=== PATIENT | female | born 1960 | race Caucasian/White ===

== ENCOUNTER 2022-01-24 12:47 | Outpatient (CLI) | payer BC, SELFPAY ==
--- NOTE | 2022-01-24 13:00 | CRLHL7_ITS ---
For Patients: As a result of the Century Cures Act, medical imaging exams and procedure reports are released immediately into your electronic medical record. You may view this report before your referring provider. If you have questions, please contact your health care provider. BILATERAL MAMMOGRAM WITH COMPUTER-AIDED DETECTION TECHNIQUE: CC and MLO views were obtained. These mammographic images have been obtained using full-field digital technique. These mammographic images were interpreted with the benefit of computer-aided detection. COMPARISON FILM: 08/19/2016, 08/03/2015, 07/29/2014. FINDINGS: There are scattered areas of fibroglandular density IMPRESSION: There is no radiographic evidence for malignancy. ASSESSMENT: BI-RADS Category 2: Benign RECOMMENDATION: Routine screening mammogram in 1 year. A lay language report of this examination will be provided to the patient. Artemio Hough M.D. Diagnostic Radiologist [email or web address] EMMA/jorge patel/Dictated by: Artemio Hough MD @ 01/25/2022 12:19:00 PM (Electronically Signed)
== END 2022-01-24 12:48 | disposition home or self-care (01) ==
LOC: MAMMO 12:48
PROVIDERS: PCP Internal Medicine; Visit Provider Internal Medicine
DX: Z12.31 Encounter for screening mammogram for malignant neoplasm of breast (principal); R92.8 Other abnormal and inconclusive findings on diagnostic imaging of breast
CPT/HCPCS: 77063; 77067

== ENCOUNTER 2023-02-17 07:32 | Outpatient (CLI) | payer BC, SELFPAY ==
--- NOTE | 2023-02-17 07:45 | CRLHL7_ITS ---
For Patients: As a result of the Century Cures Act, medical imaging exams and procedure reports are released immediately into your electronic medical record. You may view this report before your referring provider. If you have questions, please contact your health care provider. BILATERAL SCREENING MAMMOGRAM WITH COMPUTER-AIDED DETECTION TECHNIQUE: CC and MLO views were obtained. These mammographic images have been obtained using full-field digital technique. These mammographic images were interpreted with the benefit of computer-aided detection. COMPARISON FILM: 01/24/22, 08/19/16, 08/03/15. FINDINGS: The breasts are almost entirely fatty IMPRESSION: There is no radiographic evidence for malignancy. ASSESSMENT: BI-RADS Category 2: Benign RECOMMENDATION: Routine screening mammogram in 1 year. A lay language report of this examination will be provided to the patient. Artemio Hough M.D. Diagnostic Radiologist [email or web address] JOSSELYN/Dictated by: Artemio Hough MD @ 02/17/2023 3:03:00 PM (Electronically Signed)
== END 2023-02-17 07:33 | disposition home or self-care (01) ==
LOC: MAMMO 07:33
PROVIDERS: PCP Internal Medicine; Visit Provider Internal Medicine
DX: Z12.31 Encounter for screening mammogram for malignant neoplasm of breast (principal)
CPT/HCPCS: 77067

== ENCOUNTER 2023-08-31 09:11 | Outpatient (CLI) | payer BC, SELFPAY | END 2023-08-31 09:12 | disposition home or self-care (01) | LOC: NFLDREF 09-12 19:43 | PROVIDERS: PCP Internal Medicine; Referring Provider Internal Medicine; Visit Provider Internal Medicine | DX: Z13.220 Encounter for screening for lipoid disorders (principal); Z13.1 Encounter for screening for diabetes mellitus | CPT/HCPCS: 80061; 82947 ==

== ENCOUNTER 2024-04-19 13:23 | Outpatient (CLI) | payer BC, SELFPAY ==
--- OUTSIDE RECORDS SUMMARY | 2024-04-19 13:25 | XMS_ITS | Encounter Summary ---
Author Organization [facility] Address [address] [place] [address]. [place], [place] [id number] [place] [address] Care Team Providers Care Gas Line Repairer Name Role Phone Becky Vasquez DO Primary Care Provider [phone]- [phone] Encounter Details Date Type Department Care Team (Late st Contact Info) Description 08/03/2021 [employer] Message [facility] Medical [place] [id number] [place] [address] Becky Vasquez DO [address] [place] [address] Rx refill Social History Tobacco Use Types Packs/Day Years Used Date Smoking Tobacco: Former Cigarettes 0 07/10/1979 - 07/10/2000 Smokeless Tobacco: Never Alcohol Use Standard Drinks/Week Comments Not Currently 0 (1 standard drink = 0.6 oz pur e alcohol) AUDIT-C Answer Date Recorded Q1: How often do you have a drink containing alc ohol? Monthly or less 08/25/2020 Q2: How many drinks containi ng alcohol do you have on a typical day when you are drinking? 1 or 2 08/25/2020 Q3: How often do you have si x or more drinks on one occasion? Never 08/25/2020 Overall Financial Resource Strain (CARDIA) Answe r Date Recorded How hard is it for you to pa y for the very basics like food, housing, medical care, and heating? Somewhat hard 08/25/2020 [facility] - Occupational Stress Questionnaire Answer Date Recorded Do you feel stress - tense, restless, nervous, or anxious, or unable to sleep at night because your mind is troubled all the time - these days? Only a little 08/25/2020 Exercise Vital Sign Answer Date Recorde d On average, how many days pe r week do you engage in moderate to strenuous exercise (like a brisk walk)? 0 days 08/25/2020 On average, how many minutes do you engage in exercise at this level? 0 min 08/25/2020 Hunger Vital Sign Answer Date Recorded Within the past 12 months, y ou worried that your food would run out before you got the money to buy more. Never true 08/25/19 21 Within the past 12 months, t he food you bought just didn't last and you didn't have money to get more. Never true 08/25/2020 PRAPARE - Transportation Answer Date Re corded In the past 12 months, has l ack of transportation kept you from medical appointments or from getting medications? No 08/10 In the past 12 months, has l ack of transportation kept you from meetings, work, or from getting things needed for daily living? No 08/25/2020 Education Answer Date Recorded What is the highest level of school you have completed or the highest degree you have received? Associate degree: occupational, technical, or vocational program 08/25/2020 Sex and Gender Information Value Date Recorded Sex Assigned at Not on file Gender Identity Not on file Sexual Orientation Not on file Job Start Date Occupation Industry Not on file Not on file Not on file COVID-19 Exposure Response Date Recorded In the last month, have you been in contact with someone who was confirmed or suspected to have Coronavirus / COVID-19? Yes 07/28/2021 1:44 PM HEALTH CARE FACILITY ADMINISTRATOR documented as of this encounter Functional Status Functional Status Response Date of Assessment Stat us RETIRED Are you deaf or do y ou have serious difficulty hearing No 06/23/2021 Active RETIRED Are you blind or do you have serious difficulty seeing, even when wearing glasses? No 06/23/2021 Active Do you have serious difficul ty walking or climbing stairs? No 06/23/2021 Active Do you have difficulty dressing or bathing? No 06/23/2021 Active Because of a physical, menta l, or emotional condition, do you have difficulty doing errands alone such as visiting a doctor's office or shopping? No 06/23/2021 Active Cognitive Status Response Date of Assessment Statu s Because of a physical, menta l, or emotional condition, do you have serious difficulty concentrating, remembering, or making decisions? No 06/23/2021 Active documented as of this encounter Plan of Treatment Not on file documented as of this encounter Goals Goal Patient Goal Type Associated Problems Recent Progress Patient-Stated? Author Establish Reliable Transportation General No Alesia Rodrigues CSW documented as of this encounter Visit Diagnoses Not on filedocumented in this encounter Care Teams Gas Line Repairer Relationship Specialty Start Date End Date Becky Vasquez DO [address] [place] [address] PCP - General INTERNAL MEDICINE 08/26/20 documented as of this encounter
--- OUTSIDE RECORDS SUMMARY | 2024-04-19 13:25 | XMS_ITS | Clinical Summary ---
Author Organization [facility] Address [address] [place] [address]. [place], [place] [id number] [place] [id number] Care Team Providers Care Patient Financial Specialist Name Role Phone Becky Vasquez DO Primary Care Provider +1- [phone] Allergies No known active allergies Medications Medication Sig Dispensed Refills Start Date End Date Status ondansetron 4 MG disintegrating tablet Take 1 tablet (4 mg total) by mouth every 8 (eight) hours as needed for Nausea. 20 tablet 04/03/2021 Active cephALEXin 500 MG capsule 06/18/2021 Active HYDROcodone-acetaminoph en 5-325 MG tablet 06/18/2021 Active citalopram 40 MG tabletIndications:Depre ssion with anxiety Take 1 tablet (40 mg total) by mouth every evening. 30 tablet 4 08/03/2021 Active Active Problems Problem Noted Date Diagnosed Date Status post plastic surgery 06/23/2021 Neck pain, musculoskeletal 03/09/2021 Bilateral pendulous breasts 03/09/2021 Class 1 obesity due to exces s calories without serious comorbidity with body mass index (BMI) of 33.0 to 33.9 in adult 08/26/2020 Dupuytren's contracture 07/20/2018 Low back pain 01/21/2014 Depression with anxiety 07/22/2011 Overview: panic/anxiety panic/anxiety Panic disorder with agoraphobia 01/12/2011 Tension headache 10/03/2006 History of tobacco use Osteoporosis Overview: lumbar Comp Fx on film Resolved Problems Problem Noted Date Diagnosed Date Resolved Date Pruritic dermatitis 2021 03/09/20 21 Sacroiliac joint dysfunction of right side 01/19/2021 03/09/2021 Greater trochanteric bursitis of right hip 01/19/2021 03/09/2021 Nontraumatic tear of rotator cuff 09/27/2012 08/26/2020 Overview: Surgery 06/20 Surgery 06/20 Seborrheic infantile dermatitis 10/03/2006 08/26/2020 Overview: eczema eczema Immunizations Name Administration Dates Next Due Flucelvax 2 YRS+ (Multi-Dose Vial) 06/08/2021 Influenza (Generic) 05/24/2020, 9,03/18/2018,04/23/20 17,04/09/2016,03/31/2014,04/09/2013,05/21,04/05/2011 Influenza Adult (Generic) 04/20/2019,03/2018,04/23/2017,04/09/20 16,04/08/2015 Shingrix 03/10/2018,10/20/2017 Td (Tenivac) preservative free 06/14/2016,1995 Tdap (Adacel) 03/31/2016 Tdap (Generic) 03/31/2016,03/31/2014,05/28/2010 Family History Medical History Relation Comments Alcohol Abuse Brother 1 COPD Brother 1 tobacco use Brother 1 No Known Problems Brother 2 Hypertension Father Lung Cancer Maternal Grandfather Alzheimers Mother Lung Cancer Paternal Grandmother Relation Status Comments Brother 1 Alive Brother 2 Alive Daughter Alive Father Alive Maternal Grandfather Maternal Grandmother Mother Paternal Grandfather Paternal Grandmother Son 1 Alive Son 2 Alive Son 3 Alive Social History Tobacco Use Types Packs/Day Years [...] medical care, and heating? Somewhat hard 08/25/2020 [facility] - Occupational Stress [...] file Not on file Not on file Last Filed Vital Signs Vital Sign Reading Time Taken Comments Blood Pressure 98/66 06/24/2021 11:37 AM LIFT ELECTRICIAN Pulse 74 06/24/2021 11:37 AM LIFT ELECTRICIAN Temperature 36.7 ??C (98.1 ??F) 06/24/2021 11:[address] Respiratory Rate 16 06/24/2021 11:37 AM LIFT ELECTRICIAN Oxygen Saturation 96% 06/24/2021 11:37 AM LIFT ELECTRICIAN Inhaled Oxygen Concentration - - Weight 84.2 kg (185 lb 9.6 oz) 06/24/2021 3:03 A M LIFT ELECTRICIAN Height 158.8 cm (5' 2.5) 06/23/2021 10:33 AM CS T Body Mass Index 33.41 06/23/2021 10:33 AM LIFT ELECTRICIAN Plan of Treatment Health Maintenance Due Date Last Done Comments Hepatitis C 02/25[birth year]1980 Annual Physical 08/26/2021 08/26/2020 RSV Immunization or 60+ Years (1 - 1-dose 60+ series) 2022 Mammogram Screening 01/19/2023 01/19/2021, 09/27/2018, 08/19/2016 COVID-19 Vaccine ( season) 2024 Influenza Adult (#1) 2024 06/08/2021, 05/24/2020, 04/20/2019, Additional history exists Colorectal Cancer Screening Colonoscopy (10 Years) 09/29/2025 09/30/2015 DTaP, Tdap and Td Vaccines (6 - Td or Tdap) 06/14/2026 06/14/2016, 03/31/2016, 03/31/2016, Additional history exists Zoster Vaccines Completed 03/10/2018, 10/20/2017 Meningococcal Vaccine Aged Out No ajay floyd eligible based on patient's age to complete this topic Pneumococcal Vaccine: Pediatrics (0 to 5 Years) and At-Risk Patients (6 to 64 Years) Aged Out No longer eligible based on patient's age to complete this topic RSV Immunizations Under 20 Months Aged Out No longer eligible based on patient's age to complete this topic Goals Goal Patient Goal Type Associated Problems Recent Progress Patient-Stated? Author Establish Reliable Transportation General No Alesia Rodrigues CSW Procedures Procedure Name Priority Date/Time Associated Diagnosis Comments MG SCREENING W HARI MARCELA DIGI Routine 01/19/2021 1:50 PM CDT Screening due Encounter for screening mammogram for malignant neoplasm of breast COLONOSCOPY GENERIC (SCAN ORDER) Routine 09/30/2015 from Last 3 Months or Most Recently Relevant to Health Maintenance Results * MG SCREENING W HARI MARCELA DIGI (01/19/2021 1:50 PM CDT) Anatomical Region Laterality Modality Breast Bilateral Mammography 01/26/2021 4:02 PM CDT Narrative 01/26/2021 4:02 PM CDT HISTORY: ??Routine bilateral screening mammogram with tomosynthesis. TECHNICAL FACTORS: ??Routine bilateral screening mammogram with tomosynthesis. Four images: RCC, LCC, LMLO, RMLO. Exam performed at [facility] by Nithya Bailey RT(R)(CT)(M). COMPARISON: ??09/27/2018 and 09/25/2017. BREAST COMPOSITION: ??There are scattered fibroglandular densities. FINDINGS: ??No suspicious masses, calcifications, architectural distortion or other findings. No suspicious skin or nipple changes. No suspicious axillary lymph nodes. No suspicious interval change. CONCLUSION: 1. No mammographic evidence of malignancy. Routine screening mammography is advised. 2. BI-RADS 1: Negative. RECOMMENDATION: ??If there are no areas of clinical concern, routine screening mammography is advised. Thank you for the opportunity to provide your interpretation. Cheryl Leung MD A: ANUPAM 01/26/2021 3:02 PM Becky Vasquez DO MAMMO * COLONOSCOPY (09/30/2015) Becky Vasquez DO SCANNING Performing Organization Address City/State/[facility] [place] Phone Number [facility] from Last 3 Months or Most Recently Relevant to Health Maintenance Advance Directives * Full Code (Latest Code Status on File) Date Activated Date Inactivated Comments 06/23/2021 4:28 PM 06/24/2021 4:25 PM Care Teams Patient Financial Specialist Relationship Specialty Start Date End Date Becky Vasquez DO [address] [place] [address] PCP - General INTERNAL MEDICINE 08/26/20
--- OUTSIDE RECORDS SUMMARY | 2024-04-19 13:26 | XMS_ITS | Referral Summary ---
Author Organization [facility] Address [address] [place] [address] Care Team Providers Care Process Lead Name Role Phone Adriana Marroquin APRN, C.N.P., D.N.P. P [facility] Care Provider Source Comments Patient records contain information from all sites at [facility]. For routine questions regarding patient records, call [phone] during business hours, M-F 8:00 AM - 5:00 PM Central Time. Record requests for emergency care only can be directed to [phone] at any time.[facility] Encounters Date Type Department Care Team Description 04/09/2024 Orders Only [facility] SEMN PCP TH MNT Adriana Marroquin APRN, C.N.P., D.N.P. Screening Lipid 04/04/2024 Clinical Communication Department of Family Medicine, [facility], in [place], [place] [address] [place] [phone] Adriana Marroquin APRN, C.N.P., D.N.P. Quality (Mammogram) 03/29/2024 8:00 AM CDT Clinical Support Department of Nutrition in [place], [place] [address] [place] [address] Adriana Marroquin APRN, C.N.P., D.N.P. Darlene Moreno RDN, LD Body Mass Index 31.0 To 31.9 Adult 03/22/2024 3:00 PM CDT Office Visit Department of Family Medicine, [facility], in [place], [place] [address] [place] [address] Adriana Marroquin APRN, C.N.PZaheer, D.N.P. Body Mass Index 31.0 To 31.9 Adult; Concern Weight Adult Asymptomatic 02/09/2024 5:50 PM CDT - 02/09/2024 11:59 PM CDT Hospital Encounter Department of Laboratory Medicine in [place], [place] [address], [place] [address] Adriana Marroquin APRN, C.N.P., D.N.P. Body Mass Index 31.0 To 31.9 Adult Discharge Disposition: Home or Self Care 02/09/2024 3:34 PM CDT - 02/09/2024 5:49 PM CDT Hospital Encounter Department of Laboratory Medicine in [place], [place] [address] [place] [address] Adriana Marroquin APRN C.N.P., D.N.P. Body Mass Index 31.0 To 31.9 Adult Discharge Disposition: Home or Self Care 02/09/2024 3:34 PM CDT - 02/09/2024 5:49 PM CDT Hospital Encounter Department of Laboratory Medicine in [place], [place] [address] [place] [address] Adriana Marroquin APRN, C.N.P., D.N.P. Body Mass Index 31.0 To 31.9 Adult Discharge Disposition: Home or Self Care 02/09/2024 3:34 PM CDT - 02/09/2024 5:49 PM CDT Hospital Encounter Department of Laboratory Medicine in [place], [place] [address] [place] [address] Adriana Marroquin APRN C.N.P., D.N.P. Body Mass Index 31.0 To 31.9 Adult Discharge Disposition: Home or Self Care 02/09/2024 3:00 PM CDT Office Visit Department of [facility], [facility], [address] [address] [place] APRN C.N.PZaheer, D.N.P. Body Mass Index 31.0 To 31.9 Adult (Primary Dx); Concern Weight Adult Asymptomatic 02/08/2024 Refill Department of [facility], in [address] [address] Adriana Marroquin APRN, C.N.P., D.N.P. Med Refill 02/07/2024 Refill Department [facility], [address] [address] Adriana Marroquin APRN C.N.P., D.N.P. Med Refill from Last 3 Months Allergies No known active allergies Medications Medication Sig Dispensed Refills Start Date End Date Status citalopram (CeleXA) 40 mg tabletIndications: Anxiety Take 1 tablet by mouth once daily 90 tablet 08/04/2021 Active triamcinolone (KENALOG) 0.1 % cream Apply to affected area 1-2 times daily as needed. Avoid face and groin. 80 g 1 12/15/2023 Active hydrOXYzine (VistariL) 25 mg capsuleIndications :Dermatitis TAKE 1 CAPSULE(25 MG) BY MOUTH EVERY 6 HOURS NEEDED FOR ITCHING 30 capsule 1 02/09/2024 Active clobetasoL (Temovate) 0.05 % cream 01/24/2024 Active phentermine (Adipex-P) 37.5 mg tabletIndications: Body Mass Index 31.0 To 31.9 Adult,Concern Weight Adult Asymptomatic Take 1 tablet (37.5 mg total) by mouth daily before morning meal. 60 tablet 1 03/23/2024 Active phentermine (Adipex-P) 37.5 mg tabletIndications: Body Mass Index 31.0 To 31.9 Adult,Concern Weight Adult Asymptomatic Take 1 tablet (37.5 mg total) by mouth daily before morning meal. 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 Panic disorder without agoraphobia 12/29/2008 Anxiety From General Medical Condition 7 Overview (04/06/2018): Overview: panic/anxiety Seborrheic infantile dermatitis 10/03/2006 Overview (04/06/2018): Overview: eczema Tension headache 10/03/2006 Resolved Problems Problem Noted Date Diagnosed Date Resolved Date Mass Hand Soft Tissue 04/27/20182017 Immunizations Name Administration Dates Next Due HepB Adult (HEPLISAV-B) 01/24/2022,12/20/2021 Influenza Split Preservative Free ID 04/05/2011 Influenza, Injectable, Mdck, Preservative Free, Quadrivalent 03/25/2022 Influenza, Injectable, Mdck, Quadrivalent 06/08/2021 Influenza, Injectable, Quadrivalent 04/20/2019 Influenza, Seasonal, Injectable 04/09/2013,05/21 Influenza, Unspecified 05/24/2020,2017,04/23/2017,2015,04/08/2015,03/31/2014,04/09/2013,1 07/21/2011,04/05/2011 MMR 01/24/2022,12/20/2021 Measles 11/16/1976 RZV (SHINGRIX) 03/10/2018,10/20/2017 Td (Adult), adsorbed 09/13/1995 Td Preservative Free (TENIVA C, DECAVAC) 06/14/2016,09/13/1995 Tdap 03/31/2016,05/28/2010 influenza trivalent vaccine (6 months and older)(PF) 04/23/2017,04/09/2016 influenza vaccine quad (FLUZONE/FLUARIX) (6 months and older)(PF) 04/20/2019,03/18/2018,04/08/2015,2013 Social History Tobacco Use Types Packs/Day Years Used Date Smoking Tobacco: Former Cigarettes 1 21 0 07/10/1979 - 07/10/2000 Smokeless Tobacco: Never Tobacco Cessation:Counseling Given: Not Answered Alcohol Use Standard Drinks/Week Comments Yes 0 (1 standard drink = 0.6 oz pur e alcohol) 1 drink every 3 months [facility] [employer] Answer Date Recorded In the past 12 months has e [employer], gas, oil, or water [employer] threatened to shut off services in your home? No 02/09/2024 Humiliation, Afraid, Rape, and Kick questionnair e Answer Date Recorded Within the last year, have y ou been afraid of your partner or ex-partner? No 07/13/2020 Within the last year, have y ou been humiliated or emotionally abused in other ways by your partner or ex-partner? No Within the last year, have y ou been kicked, hit, slapped, or otherwise physically hurt by your partner or ex-partner? No 07/13/2020 Within the last year, have y ou been raped or forced to have any kind of sexual activity by your partner or ex-partner? No 07/13/2020 Social Connection and Isolation Panel [NHANES] A nswer Date Recorded In a typical week, how many times do you talk on the phone with family, friends, or neighbors? Once a week 07/13/2020 How often do you get together with friends or re latives? Once a week 07/13/2020 How often do you attend islam or mormonism serv ices? Never 07/13/2020 Do you belong to any clubs o r organizations such as islam groups, unions, fraternal or athletic groups, or school groups? No 07/13/2020 How often do you attend meet ings of the clubs or organizations you belong to? Never 07/13/2020 Are you , , di vorced, , never , or living with a partner? 07/13/2020 AUDIT-C Answer Date Recorded Q1: How often do you have a drink containing alc ohol? Never 07/13/2020 Average Number of Drinks Not on file 021 Frequency of Binge Drinking Not on file 10/2020 Overall Financial Resource Strain (CARDIA) Answe r Date Recorded How hard is it for you to pa y for the very basics like food, housing, medical care, and heating? Somewhat hard 07/13/2020 PHQ-2 Answer Date Recorded PHQ-2 Score 0 12/15/2023 [facility] - Occupational Stress Questionnaire Answer Date Recorded Do you feel stress - tense, restless, nervous, or anxious, or unable to sleep at night because your mind is troubled all the time - these days? Only a little 07/13/2020 Exercise Vital Sign Answer Date Recorde d On average, how many days pe r week do you engage in moderate to strenuous exercise (like a brisk walk)? 0 days 02/09/2024 On average, how many minutes do you engage in exercise at this level? 0 min 02/09/2024 Hunger Vital Sign Answer Date Recorded Within the past 12 months, y ou worried that your food would run out before you got the money to buy more. Never true 02/09/20 24 Within the past 12 months, t he food you bought just didn't last and you didn't have money to get more. Never true 02/09/2024 PRAPARE - Transportation Answer Date Re corded In the past 12 months, has l ack of transportation kept you from medical appointments or from getting medications? No 08/2023 In the past 12 months, has l ack of transportation kept you from meetings, work, or from getting things needed for daily living? No 02/09/2024 Depression Answer Date Recor ded PHQ-9 Total Score (max 27) 4 07/17 Nutrition Answer Date Recorded On average, how many serving s of fruits and vegetables do you eat per day (serving size is equal to 1 cup or approximately the size of a tennis ball)? 0-2 02/09/2024 Dental Answer Date Recorded Dental: Regular Dentist Yes 02/09/20 24 Employment Answer Date Recorded Employment status Employed and actively working without restrictions 02/09/2024 Housing Stability Answer Date Recorded What is your living situation today? I have a cara place to live 02/09/2024 Education Answer Date Recorded What is the highest level of school you have completed or the highest degree you have received? Associate degree: occupational, technical, or vocational program 07/13/2020 Sex and Gender Information Value Date Recorded Sex Assigned at Female 12/05/2023 6:39 PM CDT Gender Identity Female 04/09/2018 11:42 AM CDT Sexual Orientation Straight 04/09/2018 11 :42 AM CDT Last Filed Vital Signs Vital Sign Reading Time Taken Comments Blood Pressure 114/80 03/22/2024 2:43 PM CDT Pulse 100 03/22/2024 2:43 PM CDT Temperature 35.9 ??C (96.6 ??F) 03/22/2024 2:43 PM CD T Respiratory Rate 16 03/22/2024 2:43 PM CDT Oxygen Saturation - - Inhaled Oxygen Concentration - - Weight 77.7 kg (171 lb 4.8 oz) 03/22/2024 2:43 P M CDT Height 160 cm (5' 2.99) 03/29/2024 8:35 AM CDT Body Mass Index 30.35 11/17/2023 10:08 AM CDT Plan of Treatment Upcoming Encounters Date Type Department Care Team (Late st Contact Info) Description 04/26/2024 9:50 AM CDT Appointment Department of Laboratory Medicine in [address] [address] Adriana Marroquin APRN, C.N.P., 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 [address] [place] [phone] 09/20/2024 9:30 AM CDT Office Visit Department of Family Medicine, [facility], [address] [place] [address] Adriana Marroquin APRN, C.N.P., D.N.P. [address], [place] [address] Procedures Procedure Name Priority Date/Time Associated Diagnosis Comments ECG Routine 02/09/2024 3:41 PM CDT Body Mass Index 31.0 To 31.9 Adult HEMOGLOBIN A1C, B Routine 02/09/2024 3:4 0 PM CDT Body Mass Index 31.0 To 31.9 Adult THYROID FUNCTION CASCADE, S Routine 02/09/2024 3:40 PM CDT Body Mass Index 31.0 To 31.9 Adult BASIC METABOLIC PANEL, S/P Routine 02/09/2024 3:37 PM CDT Body Mass Index 31.0 To 31.9 Adult CBC WITH DIFFERENTIAL, B Routine 02/09/2024 3:37 PM CDT Body Mass Index 31.0 To 31.9 Adult DRUG SCREEN URINE Routine 02/09/2024 3:3 7 PM CDT Body Mass Index 31.0 To 31.9 Adult BI BREAST SCREENING BILATERAL RAD - Routine (most inpatients and all outpatients) 09/27/2018 4:38 PM CDT Screening Mammogram Breast Cancer LIPID PANEL, S Routine 09/25/2017 7:15 AM CDT Screening Test Laboratory COLONOSCOPY Routine 09/30/2015 from Last 3 Months or Most Recently Relevant to Health Maintenance Results * ECG 12 Lead (02/09/2024 3:41 PM CDT) Ventricular Rate ECG/Min 65 BPM MUSE VA Interval 138 ms MUSE QRSD Interval 84 ms MUSE QT Interval 442 ms MUSE QTC Interval 459 ms MUSE P Mesa 26 degrees MUSE R Mesa 2 degrees MUSE T Wave Mesa 28 degrees MUSE 02/09/2024 3:41 PM CDT 02/09/2024 3:49 PM CDT Impressions MUSE - 02/09/2024 3:50 PM CDT Normal sinus rhythm Normal ECG When compared with ECG of 01-Mar-2017 14:15, No significant change was found Reviewed by MONIK Boyer Narrative Procedure Note Larry Hitchcock M.B.B.S. - 02/09/2024 IMPRESSION: Normal sinus rhythm Normal ECG When compared with ECG of 01-Mar-2017 14:15, No significant change was found Reviewed by MONIK oByer Adriana Marroquin APRN, C.N.P., D .N.P. ECG ORDERABLES MUSE NA * Thyroid Function [place] (02/09/2024 3:40 PM CDT) TSH, Sensitive 1.9 0.3 - 4.2 mIU/L 02/09/2024 6:20 PM CDT OWAT Blood (Blood, Venous) 02/09/2024 3:40 PM CDT 02/09/2024 5:42 PM CDT Adriana Marroquin APRN, C.N.P., D .N.P. LAB BLOOD ADD-ON [facility] [address] [place] [address], [place] OWAT [facility] in [place] [address] [place] [address] * Hemoglobin A1c (02/09/2024 3:40 PM CDT) Hemoglobin A1c, B 5.0 4.2 - 5.6 % 02/09/2024 6:17 PM CDT OWAT Blood (Blood, Venous) 02/09/2024 3:40 PM CDT 02/09/2024 5:42 PM CDT Adriana Marroquin APRN C.N.P., D .N.P. LAB BLOOD ADD-ON [facility] [address] [place] [address], [place] [facility] in [place] [address] [place] [address] * Drug Screen Urine (02/09/2024 3:37 PM CDT) Amphetamines, U Negative Negative 02/09/2024 7:12 PM CDT TO Comment: ----ADDITIONAL INFORMATION---- Fare Collector's Cutoff: 500 ng/mL Barbiturates, U Negative Negative 02/09/2024 7:12 PM CDT MKTO Comment: ----ADDITIONAL INFORMATION---- Fare Collector's Cutoff: 200 ng/mL Benzodiazepine s, U Negative Negative 02/09/2024 7:12 PM CDT MKTO Comment: ----ADDITIONAL INFORMATION---- Fare Collector's Cutoff: 150 ng/mL Buprenorphine, U Negative Negative 02/09/2024 7:12 PM CDT TO Comment: ----ADDITIONAL INFORMATION---- Fare Collector's Cutoff: 10 ng/mL Cocaine, U Negative Negative 02/09/2024 7:12 PM CDT MKTO Comment: ----ADDITIONAL INFORMATION---- Fare Collector's Cutoff: 150 ng/mL Methadone, U Negative Negative 02/09/2024 7:12 PM CDT MKTO Comment: ----ADDITIONAL INFORMATION---- Fare Collector's Cutoff: 200 ng/mL Methamphetamin es, U Negative Negative 02/09/2024 7:12 PM CDT MKTO Comment: ----ADDITIONAL INFORMATION---- Fare Collector's Cutoff: 500 ng/mL Opiates, U Negative Negative 02/09/2024 7:12 PM CDT MKTO Comment: ----ADDITIONAL INFORMATION---- Fare Collector's Cutoff: 100 ng/mL Oxycodone, U Negative Negative 02/09/2024 7:12 PM CDT MKTO Comment: ----ADDITIONAL INFORMATION---- Fare Collector's Cutoff: 100 ng/mL Phencyclidine, U Negative Negative 02/09/2024 7:12 PM CDT MKTO Comment: ----ADDITIONAL INFORMATION---- Fare Collector's Cutoff: 25 ng/mL Tetrahydrocann abinol, U Negative Negative 02/09/2024 7:12 PM CDT MKTO Comment: ----ADDITIONAL INFORMATION---- Fare Collector's Cutoff: 50 ng/mL Tricyclic Antidepressant s, U Negative Negative 02/09/2024 7:12 PM CDT MKTO Comment: ----ADDITIONAL INFORMATION---- Fare Collector's Cutoff: 300 ng/mL THE ABOVE DRUG SCREEN PANEL IS FOR MEDICAL PURPOSES ONLY Urine (Urine, Midstream) 02/09/2024 3:37 PM CDT 02/09/2024 6:52 PM CDT Adriana Marroquin APRN, C.N.P., D .N.P. LAB URINE ORDERABLES [facility] [address] [place] [address], [facility] [place] [address] * (ABNORMAL) CBC with Differential, Blood (02/09/2024 3:37 PM CDT) Hemoglobin 14.2 11.6 - 15.0 g/dL 02/09/2024 5:58 PM CDT OWAT Hematocrit 42.5 35.5 - 44.9 % 02/09/2024 5:58 PM CDT OWAT Erythrocytes 4.72 3.92 - 5.13 x10(12)/L 02/09/2024 5:58 PM CDT OWAT MCV 90.0 78.2 - 97.9 fL 02/09/2024 5:58 PM CDT OWAT RBC Distrib Width 11.8(L) 12.2 - 16.1 % 02/09/2024 5:58 PM CDT OWAT Platelet Count 254 157 - 371 x10(9)/L 02/09/2024 5:58 PM CDT OWAT Leukocytes 8.1 3.4 - 9.6 x10(9)/L 02/09/2024 5:58 PM CDT OWAT Neutrophils 5.70 1.56 - 6.45 x10(9)/L 02/09/2024 5:58 PM CDT OWAT Lymphocytes 1.61 0.95 - 3.07 x10(9)/L 02/09/2024 5:58 PM CDT OWAT Monocytes 0.54 0.26 - 0.81 x10(9)/L 02/09/2024 5:58 PM CDT OWAT Eosinophils 0.19 0.03 - 0.48 x10(9)/L 02/09/2024 5:58 PM CDT OWAT Basophils <0.03 0.01 - 0.08 x10(9)/L 02/09/2024 5:58 PM CDT OWAT Blood (Blood, Venous) 02/09/2024 3:37 PM CDT 02/09/2024 5:55 PM CDT Adriana Marroquin APRN C.N.P., D .N.P. LAB BLOOD ADD-ON [facility] [address] [place] [address], [facility] OWAT [facility] in [place] [address] [place] [address] * Basic Metabolic Panel (02/09/2024 3:37 PM CDT) Potassium, P 4.3 3.6 - 5.2 mmol/L 02/09/2024 6:20 PM CDT OWAT Sodium, P 144 135 - 145 mmol/L 02/09/2024 6:20 PM CDT OWAT Chloride, P 105 98 - 107 mmol/L 02/09/2024 6:20 PM CDT OWAT Bicarbonate, P 28 22 - 29 mmol/L 02/09/2024 6:20 PM CDT OWAT Anion Gap, P 11 7 - 15 02/09/2024 6:20 PM CDT OWAT BUN (Blood Urea Nitrogen), P 14 6 - 21 mg/dL 02/09/2024 6:20 PM CDT OWAT Creatinine 0.76 0.59 - 1.04 mg/dL 02/09/2024 6:20 PM CDT OWAT Estimated GFR (eGFR) 89 >=60 mL/min/BSA 02/09/2024 6:20 PM CDT OWAT Comment: Estimated GFR calculated using the 2020 CKD_EPI creatinine equation. Calcium, Total, P 9.7 8.8 - 10.2 mg/dL 02/09/2024 6:20 PM CDT OWAT Glucose, P 89 70 - 140 mg/dL 02/09/2024 6:20 PM CDT OWAT Blood (Blood, Venous) 02/09/2024 3:37 PM CDT 02/09/2024 5:55 PM CDT Adriana Marroquin APRN, C.N.P., D .N.P. LAB BLOOD ADD-ON Performing Organization Address City/State/[facility] Co de Phone Number [facility] [address] [place] [address], [facility] OWAT [facility] in [place] [address] [place] [address] * BI Breast Screening Bilateral (09/27/2018 4:38 PM CDT) Anatomical Region Laterality Modality Breast, Breast Imaging RST L OS, Breast Imaging ARZ LOS, Breast Imaging FLA LOS Bilateral Mammography 09/28/2018 10:5 1 AM CDT Impressions 09/28/2018 10:52 AM CDT IMPRESSION: ??Negative. RECOMMENDATION: ??Annual Screening Mammogram ASSESSMENT: ??BI-RADS: 1: Negative. Narrative 09/28/2018 10:52 AM CDT EXAM: ??BI BREAST SCREENING BILATERAL Current study was evaluated with a Computer Aided Detection (CAD) system. INDICATION: ??Screening mammogram. COMPARISON: ??Prior exam(s) were available and reviewed for comparison. DENSITY: ??b. There are scattered areas of fibroglandular density. FINDINGS: ??No mammographic findings of malignancy. Procedure Note Dawson Lisa M.D. - 09/28/2018 EXAM: BI BREAST SCREENING BILATERAL Current study was evaluated with a Computer Aided Detection (CAD) system. INDICATION: Screening mammogram. COMPARISON: Prior exam(s) were available and reviewed for comparison. DENSITY: b. There are scattered areas of fibroglandular density. FINDINGS: No mammographic findings of malignancy. IMPRESSION: Negative. RECOMMENDATION: Annual Screening Mammogram ASSESSMENT: BI-RADS: 1: Negative. Annelise Grove P.A.-C. P.A. IMG BI PROCE DURES * (ABNORMAL) Lipid Panel (09/25/2017 7:15 AM CDT) Pathologist [facility] Cholesterol, Total 160 mg/dL 2017 8:16 AM T [facility] Comment: ----REFERENCE VALUE---- Desirable: < 200 Borderline high: 200 - 239 High: > or = 240 Triglycerides 84 mg/dL 09/25/2017 8:16 AM T [facility] Comment: ----REFERENCE VALUE---- Normal: <150 Borderline high: 150-199 High: 200-499 Very high: > or =500 Cholesterol, HDL, S 46(L) >=50 mg/dL 09/25/2017 8:16 AM T [facility] Calculated LDL 97 mg/dL 09/25/2017 8:16 AM T [facility] Comment: ----REFERENCE VALUE---- Desirable: <100 Above Desirable: 100-129 Borderline high: 130-159 High: 160-189 Very high: > or =190 Cholesterol, Non-HDL, Calculated 114 mg/dL 09/25/2017 8:16 AM T [facility] Comment: ----REFERENCE VALUE---- Desirable: <130 Above Desirable: 130-159 Borderline high: 160-189 High: 190-219 Very high: > or =220 Blood (Blood, Venous) 09/25/2017 7:15 AM CDT 09/25/2017 7:43 AM CDT Holli DengNZaheerPZaheer, SandraNZaheerP., MShahbaz., M.S.N. LAB BLOOD ADD-ON [facility] [address] [place] [address] * Colonoscopy (09/30/2015) EXT Colonoscopy Normal - See Scanned Report for Details Normal - See Scanned Report for Details, [facility]S - Report Received and Scanned Comment:Chart Review - Doc. Viewer -Outside Materials - 09/30/2015 [facility] Clinical Notes and Results(page 6) - 09/30/2015 Colonoscopy. Results: mild to moderately extensive sigmoid diverticulosis otherwise negative exam. Recommendations: repeat colonoscopy in 10 years Historical Provider GI PROCEDURE ORDERAB LES from Last 3 Months or Most Recently Relevant to Health Maintenance Care Teams Process Lead Relationship Specialty Start Date End Date Yuniel-Adriana Velázquez APRN, C.N.P., D.N.P. [address] [facility] [place] [address] PCP - General Family Medicine 02/08/24
--- OUTSIDE RECORDS SUMMARY | 2024-04-19 13:26 | XMS_ITS | Encounter Summary ---
Author Organization [facility] Address [address] [place] [address] Care Team Providers Care Chief Crew Scheduler Name Role Phone Adriana Marroquin APRN, C.N.P., D.N.P. P [facility] Care Provider Reason for Visit * Outpatient (Routine) - Closed Specialty Diagnoses / Procedures Referred By Jamarcus t Referred To Contact Nutrition Diagnoses Body Mass Index 31.0 To 31.9 Adult Adriana Marroquin APRN, C.N.P., D.N.P. [address], [place] [address] [facility] Referral ID Status Reason Start Date Expiration Date Visits Re quested Visits Authorized [id number] Closed 02/09/2024 08/10/2025 1 1 Encounter Details Date Type Department Care Team (Late st Contact Info) Description 03/29/2024 8:00 AM CDT Clinical Support Department of Nutrition in [place], [place] [address], [place] [address] Adriana Marroquin APRN, C.N.P., D.N.P. [address], [place] [address] Darlene Moreno RDN, LD [address] [place] [address] Body Mass Index 31.0 To 31.9 Adult Social History Tobacco Use Types Packs/Day Years Used Date Smoking Tobacco: Former Cigarettes 1 21 0 07/10/1979 - 07/10/2000 Smokeless Tobacco: Never Alcohol Use Standard Drinks/Week Comments Yes 0 (1 standard drink = 0.6 oz pur e alcohol) 1 drink every [address] [facility] Utilities Answer Date Recorded In the past 12 months has e [employer], gas, oil, or water company threatened to shut off services in your [...] week 07/13/2020 How often do you attend tenriism or pentecostal serv ices? Never 07/13/2020 Do you belong to any clubs o r organizations such as tenriism groups, unions, fraternal or athletic groups, or [...] Answer Date Recorded PHQ-2 Score 0 12/15/2023 [facility] - Occupational Stress Questionnaire Answer Date Recorded [...] money to buy more. Never true 02/09/20 Within the past 12 months, t he [...] Date Recorded Dental: Regular Dentist Yes 02/09/20 Employment Answer Date Recorded Employment status Employed and actively working without restrictions 02/09/2024 Housing Stability Answer Date Recorded What is your living situation today? I have a [facility] place to live 02/09/2024 Education Answer [...] Orientation Straight 04/09/2018 11 :42 AM CDT documented as of this encounter Last Filed Vital Signs Vital Sign Reading Time Taken Comments Blood Pressure - - Pulse - - Temperature - - Respiratory Rate - - Oxygen Saturation - - Inhaled Oxygen Concentration - - Weight - - Height 160 cm (5' 2.99) 03/29/2024 8:35 AM CDT Body Mass Index - - documented in this encounter Progress Notes * Darlene Moreno, DEE, LD - 03/29/2024 8:00 AM CDT REASON FOR VISIT: Medical Nutrition Therapy for obesity. Referred by: Adriana Marroquin APRN, C.N.P., D.N.P. PRESENT FOR VISIT: Patient was seen alone for today's visit. NUTRITION ASSESSMENT: Typical meal pattern/daily food intake: Breakfast: banana Lunch: Oikos triple zero yogurt with granola Supper: on weekends she may cook a meal or have a yogurt or string cheese. Snacks: popcorn with butter, string cheese, cottage cheese with sunflower seeds Beverages: water, Nat water, DrZaheer Loya- 1 bottle every 2 days. 1 Celsius in the AM. Alcohol use: rarely Restaurant dining: has been cutting back fast food and eating out since starting phentermine Food preparation/grocery shopping: lives alone and cooks for herself on weekends. Additional information pertinent to visit: Patient is currently in the Action stage of Behavior Change. She is trying to be more aware of what she is eating and making healthier changes. Physical Activity: walks her dog when able, ADLs. No strength based exercise. Supplements/pertinent medications: per EMR , phentermine Past medical history: reviewed and noted ANTHROPOMETRICS No weight today WEIGHT HISTORY: Wt Readings from Last 6 Encounters: 03/22/24 77.7 kg 02/09/24 80.7 kg 12/15/23 77 kg 11/17/23 77.1 kg 04/11/19 78.6 kg 08/21/18 76.5 kg ESTIMATED NEEDS: Calculated Energy Needs Using Equations Height: 160 cm Weight Used for Equation Calculations: 77.7 kg Method to Estimate Energy Needs: Rider-Fresno Predictive Equation Adjustment (HB): Basal Rider-Fresno BEE (Basal): 1404 HB Adjusted: 1404 Total Calorie Needs: 9921-6197 Estimated Protein Needs Weight Used to Calculate Protein Needs (Kg): 77.7 kg Method to Estimate Protein Needs (g/kg): 0.8 - 1 Estimated Protein Needs (Low): 62 Estimated Protein Needs (High): 78 PERTINENT LABS: not applicable SOCIAL HISTORY: Living arrangement: Lives alone. Learning barriers: none NUTRITION DIAGNOSIS: Other (comment) (Obesity) related to lack of adequate physical activity, predicted inadequate protein intake as evidenced by current BMI > 30 kg/m2 NUTRITION INTERVENTION: Interventions: Nutrition education, Nutrition counseling Reviewed medical nutrition therapy for weight management at length including energy/calorie balance, plate method and recommended portion sizes, timing and consistency of meals and snacks, meal and snack examples, behavior change strategies, beverages, and physical activity. Handouts Provided: Increasing Protein In Your Diet MONITORING AND EVALUATION: Nutrition Indicator Indicator/Desired Outcome: Patient desired weight loss, 10% Patient Goal(s): 1. Will aim for roughly 20 grams of protein per each meal, 3 times per day 2. Will work on increasing fiber intake, foods to include more often are fruits, vegetables, nuts, seeds, whole grains, etc. 3. Will continue to drink good water intake 4. Will aim to do 10 minutes of resistance training everyday of the week FOLLOW UP PLAN: 1. Patient is provided with RDN's contact information and encouraged to call or send message via Patient Portal with questions or concerns. 2. Encouraged patient to follow up as desired by patient. Total face to face time with patient was 45 Minutes MNT, 3 units documented in this encounter Plan of Treatment Upcoming Encounters Date Type Department Care Team (Late st Contact Info) Description 04/26/2024 9:50 AM CDT Appointment Department of Laboratory Medicine in [address] [address] Yuniel-Adriana Velázquez APRN, C.N.P., D.N.P. [address] [address] 06/21/2024 10:45 AM MEDICATION MANAGER Office Visit Department of Family Medicine, [facility], [address] [address] Adriana Marroquin APRN, C.N.PZaheer, D.N.P. [address] [address] 09/20/2024 9:30 AM CDT Office Visit Department of [facility], [address] [address] Adriana Marroquin APRN, C.N.PZaheer, D.N.P. [address] [address] documented as of this encounter Visit Diagnoses Diagnosis Body Mass Index 31.0 To 31.9 Adult documented in this encounter Additional Health Concerns Assessment Noted Time PHQ-9 Depression Total Score: 4 07/17/19 21 10:33 AM MEDICATION MANAGER documented as of this encounter Care Teams Chief Crew Scheduler Relationship Specialty Start Date End Date Adriana Marroquin APRN, C.N.P., D.N.P. [address] [address] PCP - General Family Medicine 02/08/24 documented as of this encounter
--- OUTSIDE RECORDS SUMMARY | 2024-04-19 13:26 | XMS_ITS | Encounter Summary ---
Author Organization [facility] Address [address] [place] [address]. [place], [place] [id number] [place] [address] Care Team Providers Care [employer] Glazier Name Role Phone Becky Vasquez DO Primary Care Provider [phone] Encounter Details Date Type Department Care Team (Late st Contact Info) Description 11/19/2020 Zextit Message [facility] [address] [place] [address] Becky Vasquez DO [address] [place] [address] RE: Test Results Social History Tobacco Use Types Packs/Day Years [...] medical care, and heating? Somewhat hard 08/25/2020 [facility] - Occupational Stress [...] or suspected to have Coronavirus / COVID-19? No / Unsure 11/19/2020 10:45 AM CDT documented as of this encounter Plan of Treatment Not on file documented as of this encounter Visit Diagnoses Not on filedocumented in this encounter Additional Health Concerns Infection Onset Date Last Indicated Resolved Time COVID-19 Rule Out 03/25/2021 03/25/2021 03/28/2021 6:50 AM CDT COVID-19 Confirmed 03/25/2021 04/07/2021 12:32 AM CDT COVID-19 Rule Out 06/20/2021 06/20/2021 06/20/2021 1:58 PM BELT SANDER STONE COVID-19 Rule Out 07/28/2021 07/28/2021 07/28/2021 9:39 PM BELT SANDER STONE documented as of this encounter Care Teams [employer] Relationship Specialty Start Date End Date Becky Vasquez DO [address] [place], [place] [address] PCP - General INTERNAL MEDICINE 08/26/20 documented as of this encounter
--- OUTSIDE RECORDS SUMMARY | 2024-04-19 13:26 | XMS_ITS | Clinical Summary ---
Author Organization [facility] Address [address] [place] [address] Care Team Providers Care Odd Bundle Worker Name Role Phone Adriana Marroquin APRN, C.N.P., D.N.P. P [facility] Care Provider Source Comments Patient records contain information from all sites at [facility]. For routine questions regarding patient records, call [phone] during business hours, M-F 8:00 AM - 5:00 PM Central Time. Record requests for emergency care only can be directed to [phone] at any time.[facility] Allergies No known active allergies Medications Medication [...] Resolved Date Mass Hand Soft Tissue 04/27/20182017 Encounters Date Type Department Care Team Description 04/09/2024 Orders Only [facility] PCP [facility] MNT Adriana Marroquin APRN, C.N.P., D.N.P. Screening Lipid 04/04/2024 Clinical Communication Department of [facility] Medicine, [facility], in [place], [place] [address] [place] [phone] Adriana Marroquin APRN, C.N.P., D.N.P. Quality (Mammogram) 03/29/2024 8:00 AM CDT Clinical Support Department of Nutrition in [place], [place] [address] [place] [address] Adriana Marorquin APRN, C.N.P., D.N.P. Darlene Moreno, NOLANN, LD Body Mass Index 31.0 To 31.9 Adult 03/22/2024 3:00 PM CDT Office Visit Department of Family Medicine, [facility], in [place], [place] [address] [place] [address] Adriana Marroquin APRN, C.N.P., D.N.P. Body Mass Index 31.0 To 31.9 Adult; Concern Weight Adult Asymptomatic 02/09/2024 5:50 PM CDT - 02/09/2024 11:59 PM CDT Hospital Encounter Department of Laboratory Medicine in [place], [place] [address] [place] [address] Adriana Marroquin APRN, C.N.P., D.N.P. Body Mass Index 31.0 To 31.9 Adult Discharge Disposition: Home or Self Care 02/09/2024 3:34 PM CDT - 02/09/2024 5:49 PM CDT Hospital Encounter Department of Laboratory Medicine in [place], [place] [address] [place] [address] Adriana Marroquin APRN C.N.P., D.N.P. Body Mass Index 31.0 To 31.9 Adult Discharge Disposition: Home or Self Care 02/09/2024 3:34 PM CDT - 02/09/2024 5:49 PM CDT Hospital Encounter Department of Laboratory Medicine in [place], [place] [address] [place] [address] Adriana Marroquin APRN, C.N.P., D.N.P. Body Mass Index 31.0 To 31.9 Adult Discharge Disposition: Home or Self Care 02/09/2024 3:34 PM CDT - 02/09/2024 5:49 PM CDT Hospital Encounter Department of Laboratory Medicine in [place], [place] [address] [place] [address] Adriana Marroquin APRN C.N.P., D.N.P. Body Mass Index 31.0 To 31.9 Adult Discharge Disposition: Home or Self Care 02/09/2024 3:00 PM CDT Office Visit Department of Family Medicine, [facility], in [address] [place] [address] Adriana Marroquin APRN, C.N.P., D.N.P. Body Mass Index 31.0 To 31.9 Adult (Primary Dx); Concern Weight Adult Asymptomatic 02/08/2024 Refill Department [facility], [place], [address] [address] Adriana Marroquin APRN C.N.P., D.N.P. Med Refill 02/07/2024 Refill Department [facility], [place], in [address] [place] [address] Adriana Marroquin APRN C.N.P., D.N.P. Med Refill from Last 3 Months Immunizations Name Administration Dates Next Due HepB [...] quad (FLUZONE/FLUARIX) (6 months and older)(PF) 04/20/2019,03/18/2018,04/08/2015,2013 Family History Medical History Relation Name Comments Other Brother 1 Dania COPD Heart beats irregular Brother 2 No Known Problems Daughter Hortensia Hypertension Father Riaz Cataracts Grandmother Macular degeneration Grandmother Lung cancer Maternal Grandfather Durwood Heart failure Maternal Grandmother Arthritis Mother Casi Dementia Mother Casi 03/11 No Known Problems Paternal Grandfather Lung cancer Paternal Grandmother Marimar No Known Problems Sister No Known Problems Son 1 Karlo No Known Problems Son 2 Madhu No Known Problems Son 3 Cisneros Relation Name Status Comments Brother 1 Dania Alive Brother 2 Alive Daughter Hortensia Alive Father Riaz Alive Grandmother Maternal Grandfather She Maternal Grandmother Mother Casi Alive Paternal Grandfather Paternal Grandmother Marimar Sister Alive Son 1 Karlo Alive Son 2 Madhu Alive Son 3 Cisneros Alive Social History Tobacco Use Types Packs/Day Years Used Date Smoking Tobacco: Former Cigarettes 1 21 0 07/10/1979 - 07/10/2000 Smokeless Tobacco: Never Tobacco Cessation:Counseling Given: Not Answered Alcohol Use Standard Drinks/Week Comments Yes 0 (1 standard drink = 0.6 oz pur e alcohol) 1 drink every 3 months [facility] [employer]ities Answer Date Recorded In the past 12 months has e hh[employer], gas, oil, or water [employer] threatened to shut off services in your [...] week 07/13/2020 How often do you attend yarsani or rastafari serv ices? Never 07/13/2020 Do you belong to any clubs o r organizations such as yarsani groups, unions, fraternal or athletic groups, or [...] Average Number of Drinks Not on file Frequency of Binge Drinking Not on file 10/2020 Overall Financial Resource Strain (CARDIA) Answe r Date Recorded How hard is it for you to pa y for the very basics like food, housing, medical care, and heating? Somewhat hard 07/13/2020 PHQ-2 Answer Date Recorded PHQ-2 Score 0 12/15/2023 [facility] - Occupational Stress [...] your living situation today? I have a [facility] place to live 02/09/2024 Education Answer Date [...] CDT Appointment Department of Laboratory Medicine in [place] [address] [place] [address] Adriana Marroquin APRN, C.N.P., D.N.P. [address] [address] 06/21/2024 10:45 AM GLASS VIAL BENDING CONVEYOR FEEDER Office Visit Department of Family Medicine, [facility], [place], [place] [address] [place] [address] SuccessAdriana Sadler APRN, C.N.P., D.N.P. [address] [address] 09/20/2024 9:30 AM CDT Office Visit Department of [facility], [facility], [address] [address] [facility], C.N.P., D.N.P. [address] [address] Health Maintenance Due Date Last Done Comments CT Colonography 1962 Cologuard 1962 FIT 1962 Mammogram 01/19/2022 01/19/2021, 01/07, 01/03/2020 (Performed elsewhere), Additional history exists Lipid (Cholesterol) Screening 09/25/2022 09/25/2017 COVID-19 Vaccine ( season) 2024 12/31/2021, 11/27/2021 Influenza Vaccine (#1) 2024 , 06/08/2021, 05/24/2020, Additional history exists Colonoscopy 09/29/2025 09/30/2015, 09/08, 09/30/2015 (Performed elsewhere) Colorectal Cancer Screening 09/29/2025 DTaP,Tdap,and Td Vaccines (4 - Td or Tdap) 06/14/2026 06/14/2016, 03/31/2016, 05/28/2010, Additional history exists Fasting Glucose for Diabetes Screening 02/08/2027 02/09/2024, 02/09/2024, 11/07/2023, Additional history exists Zoster Vaccines Completed 03/10/2018, 10/20/2017 Hepatitis B Vaccines Completed 01/24/2022, 12/21/19 Depression Screening (Annual PHQ-2) Completed 12/15/2023, 12/15/2023 Pneumococcal vaccine (0-64 years) Aged Out No longer eligible based on patient's age to complete this topic Procedures Procedure Name Priority Date/Time Associated Diagnosis [...] CDT) Ventricular Rate ECG/Min 65 BPM MUSE AZ Interval 138 ms MUSE QRSD Interval 84 ms MUSE QT Interval 442 ms MUSE QTC Interval 459 ms MUSE P [place] 26 degrees MUSE R [place] 2 degrees MUSE T Wave [place] 28 degrees MUSE 02/09/2024 3:41 PM CDT 02/09/2024 3:49 PM CDT Impressions MUSE - 02/09/2024 3:50 PM CDT Normal sinus rhythm Normal ECG When compared with ECG of 01-Mar-2017 14:15, No significant change was found Reviewed by MONIK Boyer Narrative Procedure Note Larry Hitchcock M.B.B.SZaheer - 02/09/2024 IMPRESSION: Normal sinus rhythm Normal ECG When compared with ECG of 01-Mar-2017 14:15, No significant change was found Reviewed by MONIK Boyer Adriana Marroquin APRN, C.N.P., D .N.P. ECG ORDERABLES MUSE NA * Thyroid Function Trosper (02/09/2024 3:40 PM CDT) TSH, Sensitive 1.9 0.3 - 4.2 mIU/L 02/09/2024 6:20 PM CDT OWAT Blood (Blood, Venous) 02/09/2024 3:40 PM CDT 02/09/2024 5:42 PM CDT Adriana Marroquin APRN, C.N.P., D .N.P. LAB BLOOD ADD-ON [facility] [address] [place] [address], [facility] in [place] [address] [place] [address] * Hemoglobin A1c (02/09/2024 3:40 PM CDT) Hemoglobin A1c, B 5.0 4.2 - 5.6 % 02/09/2024 6:17 PM CDT OWAT Blood (Blood, Venous) 02/09/2024 3:40 PM CDT 02/09/2024 5:42 PM CDT Florian Hagen APRN.N.P., D .N.P. LAB BLOOD ADD-ON [facility] [address] [place] [address], [facility] in [place] [address] [place] [address] * Drug Screen Urine (02/09/2024 3:37 PM CDT) Amphetamines, U Negative Negative 02/09/2024 7:12 PM CDT TO Comment: ----ADDITIONAL INFORMATION---- Assistant Branch Operations Manager's Cutoff: 500 ng/mL Barbiturates, U Negative Negative 02/09/2024 7:12 PM CDT MKTO Comment: ----ADDITIONAL INFORMATION---- Assistant Branch Operations Manager's Cutoff: 200 ng/mL Benzodiazepine s, U Negative Negative 02/09/2024 7:12 PM CDT TO Comment: ----ADDITIONAL INFORMATION---- Assistant Branch Operations Manager's Cutoff: 150 ng/mL Buprenorphine, U Negative Negative 02/09/2024 7:12 PM CDT MKTO Comment: ----ADDITIONAL INFORMATION---- Assistant Branch Operations Manager's Cutoff: 10 ng/mL Cocaine, U Negative Negative 02/09/2024 7:12 PM CDT MKTO Comment: ----ADDITIONAL INFORMATION---- Assistant Branch Operations Manager's Cutoff: 150 ng/mL Methadone, U Negative Negative 02/09/2024 7:12 PM CDT MKTO Comment: ----ADDITIONAL INFORMATION---- Assistant Branch Operations Manager's Cutoff: 200 ng/mL Methamphetamin es, U Negative Negative 02/09/2024 7:12 PM CDT MK Comment: ----ADDITIONAL INFORMATION---- Assistant Branch Operations Manager's Cutoff: 500 ng/mL Opiates, U Negative Negative 02/09/2024 7:12 PM CDT MKTO Comment: ----ADDITIONAL INFORMATION---- Assistant Branch Operations Manager's Cutoff: 100 ng/mL Oxycodone, U Negative Negative 02/09/2024 7:12 PM CDT MKTO Comment: ----ADDITIONAL INFORMATION---- Assistant Branch Operations Manager's Cutoff: 100 ng/mL Phencyclidine, U Negative Negative 02/09/2024 7:12 PM CDT MKTO Comment: ----ADDITIONAL INFORMATION---- Assistant Branch Operations Manager's Cutoff: 25 ng/mL Tetrahydrocann abinol, U Negative Negative 02/09/2024 7:12 PM CDT MKTO Comment: ----ADDITIONAL INFORMATION---- Assistant Branch Operations Manager's Cutoff: 50 ng/mL Tricyclic Antidepressant s, U Negative Negative 02/09/2024 7:12 PM CDT MKTO Comment: ----ADDITIONAL INFORMATION---- Assistant Branch Operations Manager's Cutoff: 300 ng/mL THE ABOVE DRUG SCREEN PANEL IS FOR MEDICAL PURPOSES ONLY Urine (Urine, Midstream) 02/09/2024 3:37 PM CDT 02/09/2024 6:52 PM CDT Adriana Marroquin APRN, C.N.P., D .N.P. LAB URINE ORDERABLES [facility] [address] [place] [address], [facility] [place] [address] * (ABNORMAL) CBC with Differential, Blood (02/09/2024 [...] APRN, C.N.P., D .N.P. LAB BLOOD ADD-ON [facility] [address] [place] [address], [facility] in [place] [address] [place] [address] * Basic Metabolic Panel (02/09/2024 3:37 PM [...] 3:37 PM CDT 02/09/2024 5:55 PM CDT Ish Hagen APRNN.Tristin., D .N.P. LAB BLOOD ADD-ON [facility] [address] [place] [address], [facility] in [place] [address] [place] [address] * BI Breast Screening Bilateral (09/27/2018 4:38 [...] Mammogram ASSESSMENT: BI-RADS: 1: Negative. Annelise Grove P.A.-C., P.A. IM BI PROCE DURES * (ABNORMAL) Lipid Panel (09/25/2017 7:15 AM CDT) Cholesterol, Total 160 mg/dL 2017 8:16 AM CDT [facility] Comment: ----REFERENCE VALUE---- Desirable: < 200 Borderline high: 200 - 239 High: > or = 240 Triglycerides 84 mg/dL 09/25/2017 8:16 AM T [facility] Comment: ----REFERENCE VALUE---- Normal: <150 Borderline high: 150-199 High: 200-499 Very high: > or =500 Cholesterol, HDL, S 46(L) >=50 mg/dL 09/25/2017 8:16 AM T [facility] Calculated LDL 97 mg/dL 09/25/2017 8:16 AM T [facility] Comment: ----REFERENCE VALUE---- Desirable: <100 Above Desirable: 100-129 Borderline high: 130-159 High: 160-189 Very high: > or =190 Cholesterol, Non-HDL, Calculated 114 mg/dL 09/25/2017 8:16 AM CDT [facility] Comment: ----REFERENCE VALUE---- Desirable: <130 Above Desirable: 130-159 Borderline high: 160-189 High: 190-219 Very high: > or =220 Blood (Blood, Venous) 09/25/2017 7:15 AM CDT 09/25/2017 7:43 AM CDT Holli DengNZaheerPZaheer, SandraNZaheerP., M.S., M.S.N. LAB BLOOD ADD-ON [facility] [address] [place] [address] * Colonoscopy (09/30/2015) EXT Colonoscopy Normal - [...] Recently Relevant to Health Maintenance Care Teams Odd Bundle Worker Relationship Specialty Start Date End Date Adriana Marroquin APRN, C.N.P., D.N.P. [address] [place] [address] PCP - General Family Medicine 02/08/24
--- OUTSIDE RECORDS SUMMARY | 2024-04-19 13:26 | XMS_ITS | Encounter Summary ---
Author Organization [facility] Address [address] [place] [address] Care Team Providers Care Outside Sales Name Role Phone Adriana Marroquin APRN, C.N.P., D.N.P. P [facility] Care Provider Encounter Details Date Type Department Care Team (Late st Contact Info) Description 02/09/2024 5:50 PM CDT - 02/09/2024 11:59 PM CDT Hospital Encounter Department of Laboratory Medicine in [place], [place] [address] [phone] Adriana Marroquin APRN, C.N.P., D.N.P. [address] [phone] Body Mass Index 31.0 To 31.9 Adult Discharge Disposition: Home or Self Care Social History Tobacco Use Types Packs/Day Years Used Date Smoking Tobacco: Former Cigarettes 1 21 0 07/10/1979 - 07/10/2000 Smokeless Tobacco: Never Alcohol Use Standard Drinks/Week Comments Yes 0 (1 standard drink = 0.6 oz pur e alcohol) 1 drink every 3 months [facility] Utilities Answer Date Recorded In the past 12 months has e electric, gas, oil, or water company threatened to [...] week 07/13/2020 How often do you attend jewish or restorationist serv ices? Never 07/13/2020 Do you belong to any clubs o r organizations such as jewish groups, unions, fraternal or athletic groups, or [...] Answer Date Recorded PHQ-2 Score 0 12/15/2023 [facility] [place] of Occupat ional Health - Occupational Stress [...] your living situation today? I have a [facility] place to live 02/09/2024 Education Answer Date [...] AM CDT documented as of this encounter Medications at Time of Discharge Medication Sig Dispensed Refills Start Date End Date citalopram (CeleXA) 40 mg tabletIndications:Anxie ty Take 1 tablet by mouth once daily 90 tablet 08/04/2021 clobetasoL (Temovate) 0.05 % cream 01/24/2024 hydrOXYzine (VistariL) 25 mg capsuleIndications:Derm atitis TAKE 1 CAPSULE(25 MG) BY MOUTH EVERY 6 HOURS NEEDED FOR ITCHING 30 capsule 1 02/09/2024 triamcinolone (KENALOG) 0.1 % cream Apply to affected area 1-2 times daily as needed. Avoid face and groin. 80 g 1 12/15/2023 phentermine (Adipex-P) 37.5 mg tabletIndications:Body Mass Index 31.0 To 31.9 Adult,Concern Weight Adult Asymptomatic Take 1 tablet (37.5 mg total) by mouth daily before morning meal. 60 tablet 1 02/13/2024 03/23/2024 documented as of this encounter Plan of Treatment Upcoming Encounters Date Type Department Care Team (Late st Contact Info) Description 04/26/2024 9:50 AM CDT Appointment Department of Laboratory Medicine in [address] [phone] [facility], C.N.P., D.N.P. [address] [place] [phone] 06/21/2024 10:45 AM RESEARCH MANAGEMENT ASSOCIATE Office Visit Department of Family Medicine, [facility], in [address] [phone] [facility], C.N.P., D.N.P. [address] [phone] 09/20/2024 9:30 AM CDT Office Visit Department of Family [facility], [facility], in [address] [phone] [facility], C.N.P., D.N.P. [address] [phone] documented as of this encounter Procedures Procedure Name Priority Date/Time Associated Diagnosis Comments CBC WITH DIFFERENTIAL, B Routine 02/09/2024 3:37 PM CDT Body Mass Index 31.0 To 31.9 Adult BASIC METABOLIC PANEL, S/P Routine 02/09/2024 3:37 PM CDT Body Mass Index 31.0 To 31.9 Adult documented in this encounter Results * Basic Metabolic Panel (02/09/2024 3:37 PM [...] APRN, C.N.P., D .N.P. LAB BLOOD ADD-ON [facility] [address] [place] [address], [facility] in [place] [address] [place] [address] * (ABNORMAL) CBC with Differential, Blood (02/09/2024 [...] 02/09/2024 5:55 PM CDT Adriana Marroquin APRN, C.NMarybeth, D .N.P. LAB BLOOD ADD-ON [facility] [address] [address], [facility] in [place] [address] [place] [address] documented in this encounter Visit Diagnoses Diagnosis Body Mass Index 31.0 To 31.9 Adult documented in this encounter Additional Health Concerns Assessment Noted Time PHQ-9 Depression Total Score: 4 07/17/19 21 10:33 AM RESEARCH MANAGEMENT ASSOCIATE documented as of this encounter Care Teams Outside Sales Relationship Specialty Start Date End Date Adriana Marroquin APRN, C.N.Tristin., D.N.P. [address] [place] [phone] PCP - General Family Medicine 02/08/24 documented as of this encounter
--- OUTSIDE RECORDS SUMMARY | 2024-04-19 13:26 | XMS_ITS | Encounter Summary ---
Author Organization [facility] Address [address] [place] [address] Care Team Providers Care Epic Beacon Specialists Name Role Phone Adriana Marroquin APRN, C.N.P., D.N.P. P [facility] Care Provider Encounter Details Date Type Department Care Team (Late st Contact Info) Description 04/09/2024 Orders Only [facility] PCP TH MNT Adriana Marroquin, KURT, C.N.P., D.N.P. [address], [place] [address] Screening Lipid Social History Tobacco Use Types Packs/Day Years Used Date Smoking Tobacco: Former Cigarettes 1 21 0 07/10/1979 - 07/10/2000 Smokeless Tobacco: Never Alcohol Use Standard Drinks/Week Comments Yes 0 (1 standard drink = 0.6 oz pur e alcohol) 1 drink every 3 months [facility] Utilities Answer Date Recorded In the past 12 months has e [employer], gas, oil, or water [employer] threatened to shut off services in your [...] week 07/13/2020 How often do you attend denominational or taoist serv ices? Never 07/13/2020 Do you belong to any clubs o r organizations such as denominational groups, unions, fraternal or athletic groups, or [...] Answer Date Recorded PHQ-2 Score 0 12/15/2023 [facility] of Occupat ional Health - Occupational [...] your living situation today? I have a [facility] place to live 02/09/2024 Education Answer Date [...] CDT Appointment Department of Laboratory Medicine in [place], [place] [address] [place] [phone] Yuniel-Adriana Velázquez APRN, C.N.P., D.N.P. [address], [place] [address] 06/21/2024 10:45 AM WATER SKI ASSEMBLER Office Visit Department of Family Medicine, [facility], in [place], [place] [address] [place] [address] Adriana Marroquin APRN, C.N.P., D.N.P. [address] [phone] 09/20/2024 9:30 AM CDT Office Visit Department of Family Medicine, [facility], in [address] [phone] Adriana Marroquin APRN, C.N.P., D.N.P. [address] [phone] Scheduled Orders Name Type Priority Associated Diagnoses Orde r Schedule Lipid Panel Lab Routine Screening Lipid Expected: 04/23/2024, Expires: 10/06/2024 documented as of this encounter Visit Diagnoses Diagnosis Screening Lipid documented in this encounter Additional Health Concerns Assessment Noted Time PHQ-9 Depression Total Score: 4 07/17/19 21 10:33 AM WATER SKI ASSEMBLER documented as of this encounter Care Teams Epic Beacon Specialists Relationship Specialty Start Date End Date Adriana Marroquin APRN C.N.P., D.N.P. [address] [phone] PCP - General Family Medicine 02/08/24 documented as of this encounter
--- OUTSIDE RECORDS SUMMARY | 2024-04-19 13:26 | XMS_ITS | Encounter Summary ---
Author Organization [facility] Address [address] [place] [address]. [place], [place] [address] [place] [address] Care Team Providers Care Hand Lens Polisher Name Role Phone Becky Vasquez DO Primary Care Provider +1- [phone] Encounter Details Date Type Department Care Team (Late st Contact Info) Description 03/30/2021 [employer] Message [facility] Medical [facility] [address] [place] [address] Becky Vasquez DO [address] [place] [address] Question Social History Tobacco Use Types Packs/Day Years [...] medical care, and heating? Somewhat hard 08/25/2020 [facility] [place] of Occupat ional Health - Occupational Stress [...] have Coronavirus / COVID-19? No / Unsure 03/09/2021 2:17 PM CDT documented as of this encounter Plan of Treatment Not on file documented as of this encounter Visit Diagnoses Not on filedocumented in this encounter Additional Health Concerns Infection Onset Date Last Indicated Resolved Time COVID-19 Confirmed 03/25/2021 04/07/2021 12:32 AM CDT COVID-19 Rule Out 06/20/2021 06/20/2021 06/20/2021 1:58 PM CERAMIC DESIGN ENGINEER COVID-19 Rule Out 07/28/2021 07/28/2021 07/28/2021 9:39 PM CERAMIC DESIGN ENGINEER documented as of this encounter Care Teams Hand Lens Polisher Relationship Specialty Start Date End Date Becky Vasquez DO [address] [place] [address] PCP - General INTERNAL MEDICINE 08/26/20 documented as of this encounter
--- OUTSIDE RECORDS SUMMARY | 2024-04-19 13:26 | XMS_ITS | Encounter Summary ---
Author Organization [facility] Address [address] [place] [address] Care Team Providers Care Electronics Department Manager Name Role Phone Adriana Marroquin APRN, C.N.P., D.N.P. P [facility] Care Provider Reason for Referral * Outpatient (Routine) - Authorized Specialty Diagnoses / Procedures Referred By Jamarcus t Referred To Contact Diagnoses Screening Mammogram Breast Cancer Procedures BI Breast Screening Bilateral with Tomosynthesis Adriana Marroquin APRN, C.N.P., D.N.P. [address] [place] [address] [facility] Referral ID Status Reason Start Date Expiration Date V isits Requested Visits Authorized [id number] Authorized 04/04/2024 04/04/2025 1 1 Reason for Visit * Reason Onset Date Comments Quality 04/04/2024 Mammogram Encounter Details Date Type Department Care Team (Late st Contact Info) Description 04/04/2024 Clinical Communication Department of Family Medicine, [facility], in [place], [place] [address] [place] [phone] Adriana Marroquin APRN, C.N.P., D.N.P. [address] [place] [address] Quality (Mammogram) Social History Tobacco Use Types Packs/Day Years Used Date Smoking Tobacco: Former Cigarettes 1 21 0 07/10/1979 - 07/10/2000 Smokeless Tobacco: Never Alcohol Use Standard Drinks/Week Comments Yes 0 (1 standard drink = 0.6 oz pur e alcohol) 1 drink every 3 months [facility] [employer] Answer Date Recorded In the past 12 months has e [employer], gas, oil, or water [employer] threatened to shut off services in your [...] week 07/13/2020 How often do you attend christian or baptist serv ices? Never 07/13/2020 Do you belong to any clubs o r organizations such as christian groups, unions, fraternal or athletic groups, or [...] Answer Date Recorded PHQ-2 Score 0 12/15/2023 [facility] [place] of Occupat ional Health - Occupational Stress [...] AM CDT documented as of this encounter Miscellaneous Notes * Telephone Encounter - Joslyn Crespo R.N. - 04/04/2024 2:26 PM CDT Patient due for Mammogram. Order pended. documented in this encounter Plan of Treatment Upcoming Encounters Date Type Department Care Team (Late st Contact Info) Description 04/26/2024 9:50 AM CDT Appointment Department of Laboratory Medicine in [address] [phone] YunielAdriana Velázquez APRN, C.N.P., D.N.P. [address] [phone] 06/21/2024 10:45 AM OUTSOLE COMPRESSOR [facility] [address] [phone] YunielAdriana Velázquez APRN, C.N.P., D.N.P. [address] [phone] 09/20/2024 9:30 AM CDT Office Visit Department of [facility], in [address] [phone] Adriana Marroquin APRN, C.N.P., D.N.P. [address] [phone] Scheduled Orders Name Type Priority Associated Diagnoses Order Schedule BI Breast Screening Bilateral with Tomosynthesis Imaging RAD - Routine (most inpatients and all outpatients) Screening Mammogram Breast Cancer Expected: 04/04/2024, Expires: 07/04/2025 documented as of this encounter Visit Diagnoses Diagnosis Screening Mammogram Breast Cancer- Primary documented in this encounter Additional Health Concerns Assessment Noted Time PHQ-9 Depression Total Score: 4 07/17/19 21 10:33 AM OUTSOLE COMPRESSOR documented as of this encounter Care Teams Electronics Department Manager Relationship Specialty Start Date End Date Yuniel-Adriana Velázquez APRN, C.N.P., D.N.P. [address] [place] [phone] PCP - General Family Medicine 02/08/24 documented as of this encounter
--- OUTSIDE RECORDS SUMMARY | 2024-04-19 13:26 | XMS_ITS | Encounter Summary ---
Author Organization [facility] Address [address] [place] [address]. [place], [place] [address] [place] [address] Care Team Providers Care Rug Receiving Clerk Name Role Phone Becky Vasquez DO Primary Care Provider +1- [phone] Encounter Details Date Type Department Care Team (Late st Contact Info) Description 10/05/2020 [employer] Message [facility] [address] [place] [address] Becky Vasquez DO [address] [place] [address] RE: Test Results Social History Tobacco [...] medical care, and heating? Somewhat hard 08/25/2020 [facility] [place] of Occupat ional Health - Occupational Stress [...] have Coronavirus / COVID-19? No / Unsure 09/08/2020 8:26 AM MANAGER OF COMPLIANCE documented as of this encounter Plan of Treatment Not on file documented as of this encounter Visit Diagnoses Not on filedocumented in this encounter Additional Health Concerns Infection Onset Date Last Indicated Resolved Time COVID-19 Rule Out 03/25/2021 03/25/2021 03/28/2021 6:50 AM CDT COVID-19 Confirmed 03/25/2021 04/07/2021 12:32 AM CDT COVID-19 Rule Out 06/20/2021 06/20/2021 06/20/2021 1:58 PM MANAGER OF COMPLIANCE COVID-19 Rule Out 07/28/2021 07/28/2021 07/28/2021 9:39 PM MANAGER OF COMPLIANCE documented as of this encounter Care Teams Rug Receiving Clerk Relationship Specialty Start Date End Date Becky Vasquez DO [address] [place], [place] [address] PCP - General INTERNAL MEDICINE 08/26/20 documented as of this encounter
--- OUTSIDE RECORDS SUMMARY | 2024-04-19 13:26 | XMS_ITS | Encounter Summary ---
Author Organization [facility] Address [address] [place] [address] Care Team Providers Care Real Estate Inspector Name Role Phone Adriana Marroquin APRN, C.N.P., D.N.P. P [facility] Care Provider Reason for Referral * Outpatient (Routine) - Authorized Specialty Diagnoses / Procedures Referred By Contac t Referred To Contact Family Medicine Diagnoses Body Mass Index 31.0 To 31.9 Adult Concern Weight Adult Asymptomatic Adriana Marroquin APRN, C.N.P., D.N.P. [address] [place] [address] [facility] Region Referral ID Status Reason Start Date Expiration Date V isits Requested Visits Authorized [id number] Authorized 03/22/2024 09/21/2025 1 1 * Outpatient (Routine) - Authorized Specialty Diagnoses / Procedures Referred By Contac t Referred To Contact Diagnoses Body Mass Index 31.0 To 31.9 Adult Concern Weight Adult Asymptomatic Adriana Marroquin APRN, C.N.P., D.N.P. [address] [place] [address] [facility] Region Referral ID Status Reason Start Date Expiration Date V isits Requested Visits Authorized [id number] Authorized 03/22/2024 09/21/2025 1 1 Reason for Visit * Reason Comments Follow-up One month. * Outpatient (Routine) - Closed Specialty Diagnoses / Procedures Referred By Jamarcus t Referred To Contact Family Medicine Diagnoses Body Mass Index 31.0 To 31.9 Adult Adriana Marroquin APRN, C.N.PZaheer, D.N.P. [address] [phone] [facility] Region Referral ID Status Reason Start Date Expiration Date Visits Re quested Visits Authorized [id number] Closed 02/09/2024 08/10/2025 1 1 Encounter Details Date Type Department Care Team (Late st Contact Info) Description 03/22/2024 3:00 PM CDT Office Visit Department of Family Medicine, [facility], in [address] [phone] Adriana aMrroquin APRN, C.N.PZaheer, D.N.P. [address] [phone] Body Mass Index 31.0 To 31.9 Adult; Concern Weight Adult Asymptomatic Social History Tobacco Use Types Packs/Day Years Used Date Smoking Tobacco: Former Cigarettes 1 21 0 07/10/1979 - 07/10/2000 Smokeless Tobacco: Never Tobacco Cessation:Counseling Given: Not Answered Alcohol Use Standard Drinks/Week Comments Yes 0 (1 standard drink = 0.6 oz pur e alcohol) 1 drink every 3 months [facility] Utilities Answer Date Recorded In the [...] week 07/13/2020 How often do you attend yazidism or faith serv ices? Never 07/13/2020 Do you belong to any clubs o r organizations such as yazidism groups, unions, fraternal or athletic groups, or [...] Answer Date Recorded PHQ-2 Score 0 12/15/2023 [facility] [place] of Occupat ional Health - Occupational Stress [...] your living situation today? I have a [facility] place to live 02/09/2024 Education Answer Date [...] oz) 03/22/2024 2:43 P M CDT Height - - Body Mass Index 30.35 11/17/2023 10:08 AM CDT documented in this encounter Progress Notes * Adriana Marroquin APRN, C.N.P., D.N.P. - 03/22/2024 3:00 PM CDT SUBJECTIVE CHIEF COMPLAINT / REASON FOR VISIT Mary Carrillo is a 64 y.o. female who presents for evaluation of Follow-up (One month. ). HISTORY OF PRESENT ILLNESS Mary Carrillo is a 64-year-old female who presents for follow up visit regarding her use of phentermine for weight loss. She reports having lost approximately 8 lb since starting the medication a little over a month ago. The patient has a history of successful weight loss with the phentermine, having previously lost 20 lb. Her current goal is to lose 20-30 lb in total. She is engaging in walking as a form of exercise and has an upcoming appointment with a installer apprentice to receive guidance on food choices. 02/09/2024 weight 178 lb and today 171-7 lb weight loss according a scale at home 8 lb weight loss. OBJECTIVE Vitals: 03/22/24 1443 BP: 114/80 BP Location: Right arm Patient Position: Sitting Cuff Size: Regular Pulse: 100 Resp: 16 Temp: (!) 35.9 ??C TempSrc: Temporal Weight: 77.7 kg Body mass index is 30.35 kg/m??. PHYSICAL EXAMINATION Constitutional Appearance: Normal appearance. Cardiovascular Rate and Rhythm: Normal rate and regular rhythm. Neurological General: No focal deficit present. Mental Status: She is alert and oriented to person, place, and time. Psychiatric Mood and Affect: Mood normal. Behavior: Behavior normal. ASSESSMENT / PLAN #1 Body Mass Index 31.0 To 31.9 Adult #2 Concern Weight Adult Asymptomatic Clinical decision-making: Patient currently taking phentermine 37.5 mg tablet daily for weight lossmanagement. Goal weight loss is 20 -30 lb. And has lost 7 lb over the past month. Patient is encouraged to follow up with the installer apprentice for dietary guidance. She is to schedule weight check with the nurse in 3 months and follow up appointment with this provider in 6 months. Encouraged to continue walking and consider incorporating additional forms of exercise as tolerated. Encouraged patient to continue staying well hydrated. All questions answered and patient voiced understanding and agreed with the plan. Adriana Marroquin APRN, C.N.P., D.N.P. documented in this encounter Plan of Treatment Upcoming Encounters Date Type Department Care Team (Late st Contact Info) Description 04/26/2024 9:50 AM CDT Appointment Department of Laboratory Medicine in [address] [phone] Adriana Marroquin APRN, C.N.P., D.N.P. [address] [phone] 06/21/2024 10:45 AM ASSOCIATE TRAINER Office Visit Department of Family Medicine, [facility], in [address] [phone] Adriana Marroquin APRN, C.N.P., D.N.P. [address] [place] [phone] 09/20/2024 9:30 AM CDT Office Visit Department of Family Medicine, [facility], in [address] [phone] Adriana Marroquin APRN C.N.P., D.N.P. [address] [phone] Scheduled Referrals Name Type Priority Associated Diagnoses Orde r Schedule Primary Care nurse visit (clinic) - [facility] Region; Weight check (adult) Outpatient Referral Routine Body Mass Index 31.0 To 31.9 Adult Concern Weight Adult Asymptomatic Expected: 06/21/2024 (Approximate), Expires: 06/21/2025 Family Medicine office visit (clinic) Outpatient Referral Routine Body Mass Index 31.0 To 31.9 Adult Concern Weight Adult Asymptomatic Expected: 09/19/2024, Expires: 06/21/2025 documented as of this encounter Visit Diagnoses Diagnosis Body Mass Index 31.0 To 31.9 Adult Concern Weight Adult Asymptomatic documented in this encounter Additional Health Concerns Assessment Noted Time PHQ-9 Depression Total Score: 4 07/17/19 21 10:33 AM ASSOCIATE TRAINER documented as of this encounter Care Teams Real Estate Inspector Relationship Specialty Start Date End Date Yuniel-Adriana Velázquez APRN, C.N.P., D.N.P. [address] [place] [phone] PCP - General Family Medicine 02/08/24 documented as of this encounter
--- OUTSIDE RECORDS SUMMARY | 2024-04-19 13:26 | XMS_ITS ---
Author Organization [facility] Address [address] [place] [address] Care Team Providers Care Lapper Name Role Phone Unavailable Unavailable Unavailable Surgery Details Not on file Complications Check Surgery Details section. Procedure Estimated Blood Loss Check Surgery Details section. Procedure Findings Check Surgery Details section. Procedure Specimens Taken Check Surgery Details section.
--- OUTSIDE RECORDS SUMMARY | 2024-04-19 13:26 | XMS_ITS | Encounter Summary ---
Author Organization [facility] Address [address] [place] [address]. [place], [place] [id number] [place] [address] Care Team Providers Care Sales Management Intern Name Role Phone Becky Vasquez DO Primary Care Provider +1- [phone] Encounter Details Date Type Department Care Team (Late st Contact Info) Description 02/09/2021 [employer] Message [facility] Medical [facility] [address] [place] [address] Becky Vasquez DO [address] [place] [address] RE: Question Social History Tobacco Use Types Packs/Day [...] medical care, and heating? Somewhat hard 08/25/2020 [facility] [place] of Occupat ional Health - Occupational Stress [...] have Coronavirus / COVID-19? No / Unsure 01/19/2021 1:18 PM CDT documented as of this encounter Plan of Treatment Not on file documented as of this encounter Visit Diagnoses Not on filedocumented in this encounter Additional Health Concerns Infection Onset Date Last Indicated Resolved Time COVID-19 Rule Out 03/25/2021 03/25/2021 03/28/2021 6:50 AM CDT COVID-19 Confirmed 03/25/2021 04/07/2021 12:32 AM CDT COVID-19 Rule Out 06/20/2021 06/20/2021 06/20/2021 1:58 PM HEARING HEALTHCARE PRACTITIONER COVID-19 Rule Out 07/28/2021 07/28/2021 07/28/2021 9:39 PM HEARING HEALTHCARE PRACTITIONER documented as of this encounter Care Teams Sales Management Intern Relationship Specialty Start Date End Date Becky Vasquez DO [address] [place], [place] [phone] PCP - General INTERNAL MEDICINE 08/26/20 documented as of this encounter
--- OUTSIDE RECORDS SUMMARY | 2024-04-19 13:27 | XMS_ITS | Encounter Summary ---
Author Organization [facility] Address [address] [place] [address] Care Team Providers Care Manager E Learning Name Role Phone Adriana Marroquin APRN, C.N.P., D.N.P. P [facility] Care Provider Reason for Referral * Outpatient (Routine) - Closed Specialty Diagnoses / Procedures Referred By Contac t Referred To Contact Diagnoses Body Mass Index 31.0 To 31.9 Adult Procedures ECG 12 Lead Adriana Marroquin APRN, C.N.P., D.N.P. [address] [place] [address] [facility] Region Referral ID Status Reason Start Date Expiration Date Visits Re quested Visits Authorized [id number] Closed 02/09/2024 02/08/2025 1 1 Reason for Visit * Outpatient (Routine) - Closed Specialty Diagnoses / Procedures Referred By Contac t Referred To Contact Diagnoses Body Mass Index 31.0 To 31.9 Adult Procedures ECG 12 Lead Adriana Marroquin APRN, C.N.P., D.N.P. [address] [place] [address] [facility] Region Referral ID Status Reason Start Date Expiration Date Visits Re quested Visits Authorized [id number] Closed 02/09/2024 02/08/2025 1 1 Encounter Details Date Type Department Care Team (Late st Contact Info) Description 02/09/2024 3:34 PM CDT - 02/09/2024 5:49 PM CDT Hospital Encounter Department of Laboratory Medicine in [place], [place] [address] [facility] [place] [address] Adriana Marroquin APRN, C.N.P., D.N.P. 0 [place] [address] Body Mass Index 31.0 To 31.9 Adult Discharge Disposition: Home or Self Care Social History Tobacco Use Types Packs/Day Years Used Date Smoking Tobacco: Former Cigarettes 1 21 0 07/10/1979 - 07/10/2000 Smokeless Tobacco: Never Alcohol Use Standard Drinks/Week Comments Yes 0 (1 standard drink = 0.6 oz pur e alcohol) 1 drink every 3 months [facility] Utilities Answer Date Recorded In the past 12 months has e [employer], gas, oil, or water [employer] threatened to shut off services in your [...] week 07/13/2020 How often do you attend hinduism or confucianism serv ices? Never 07/13/2020 Do you belong to any clubs o r organizations such as hinduism groups, unions, fraternal or athletic groups, or [...] Answer Date Recorded PHQ-2 Score 0 12/15/2023 [facility] Occupat ional Health - Occupational [...] your living situation today? I have a [facility] place to live 02/09/2024 Education Answer [...] Appointment Department of Laboratory Medicine in [address] [address] Adriana Marroquin APRN, C.N.P., D.N.P. [address] [place] [phone] 06/21/2024 10:45 AM NET SOLUTIONS ARCHITECT Office Visit Department of [facility], [facility], [address] [address] Adriana Marroquin APRN, C.N.P., D.N.P. [address] [place] [phone] 09/20/2024 9:30 AM CDT Office Visit [facility], [address] [address] Adriana Marroquin APRN, C.N.P., D.N.P. [address] [phone] documented as of this encounter Procedures Procedure Name Priority Date/Time Associated Diagnosis Comments ECG Routine 02/09/2024 3:41 PM CDT Body Mass Index 31.0 To 31.9 Adult documented in this encounter Results * ECG 12 Lead (02/09/2024 3:41 PM CDT) Ventricular Rate ECG/Min 65 BPM MUSE VT Interval 138 ms MUSE QRSD Interval 84 ms MUSE QT Interval 442 ms MUSE QTC Interval 459 ms MUSE P [place] 26 degrees MUSE R [place] 2 degrees MUSE T Wave [place] 28 degrees MUSE 02/09/2024 3:41 PM CDT [...] Reviewed by MONIK Boyer Adriana Marroquin APRN, C.N.PZaheer, D .N.P. ECG ORDERABLES MUSE NA documented in this encounter Visit Diagnoses Diagnosis Body Mass Index 31.0 To 31.9 Adult documented in this encounter Additional Health Concerns Assessment Noted Time PHQ-9 Depression Total Score: 4 07/17/19 21 10:33 AM NET SOLUTIONS ARCHITECT documented as of this encounter Care Teams Manager E Learning Relationship Specialty Start Date End Date Adriana Marroquin APRN, C.N.P., D.N.P. [address], [place] [address] PCP - General Family Medicine 02/08/24 documented as of this encounter
--- OUTSIDE RECORDS SUMMARY | 2024-04-19 13:27 | XMS_ITS | Encounter Summary ---
Author Organization [facility] Address [address] [place] [address] Care Team Providers Care Director Of National Sales Name Role Phone Adriana Marroquin APRN, C.N.P., D.N.P. P [facility] Care Provider Encounter Details Date Type Department Care Team (Late st Contact Info) Description 02/09/2024 3:34 PM CDT - 02/09/2024 5:49 PM CDT Hospital Encounter Department of Laboratory Medicine in [address] [address] Adriana Marroquin APRN, C.N.P., D.N.P. [address] [phone] Body Mass Index 31.0 To 31.9 Adult Discharge Disposition: Home or Self Care Social History Tobacco Use Types Packs/Day Years Used Date Smoking Tobacco: Former Cigarettes 1 21 0 07/10/1979 - 07/10/2000 Smokeless Tobacco: Never Alcohol Use Standard Drinks/Week Comments Yes 0 (1 standard drink = 0.6 oz pur e alcohol) 1 drink every 3 months [facility] Utilities Answer Date Recorded In the past 12 months has e electric, gas, oil, or water [employer] threatened to shut off services in your [...] week 07/13/2020 How often do you attend muslim or baptism serv ices? Never 07/13/2020 Do you belong to any clubs o r organizations such as muslim groups, unions, fraternal or athletic groups, or [...] Answer Date Recorded PHQ-2 Score 0 12/15/2023 [facility] [place] of Occupat ional Health - Occupational Stress [...] your living situation today? I have a [facility] place to live 02/09/2024 Education Answer [...] CDT Appointment Department of Laboratory Medicine in [address] [address] [facility] Vel[facility] APRN, C.N.P., D.N.P. [address] [phone] 06/21/2024 10:45 AM CILNICAL SCIENTIST Office Visit Department of [facility], [facility], in [address] [address] [facility] Veláz[facility] APRN, C.N.P., D.N.P. [address] [phone] 09/20/2024 9:30 AM CDT Office Visit Department of Family [facility], [facility], in [address] [phone] YunielAdriana Velázquez APRN, C.N.P., D.N.P. [address] [phone] documented as of this encounter Procedures Procedure Name Priority Date/Time Associated Diagnosis Comments THYROID FUNCTION CASCADE, S Routine 02/09/2024 3:40 PM CDT Body Mass Index 31.0 To 31.9 Adult HEMOGLOBIN A1C, B Routine 02/09/2024 3:4 0 PM CDT Body Mass Index 31.0 To 31.9 Adult documented in this encounter Results * Hemoglobin A1c (02/09/2024 3:40 PM CDT) Hemoglobin A1c, B 5.0 4.2 - 5.6 % 02/09/2024 6:17 PM CDT OWAT Blood (Blood, Venous) 02/09/2024 3:40 PM CDT 02/09/2024 5:42 PM CDT Florian Hagen APRN.N.P., D .N.P. LAB BLOOD ADD-ON Performing Organization Address City/[facility]/ZIP Co de Phone Number [facility] [address] [place] [address], [facility] OWAT [facility] in [place] [address], [place] [address] * Thyroid Function [place] (02/09/2024 3:40 PM CDT) TSH, Sensitive 1.9 0.3 - 4.2 mIU/L 02/09/2024 6:20 PM CDT OWAT Blood (Blood, Venous) 02/09/2024 3:40 PM CDT 02/09/2024 5:42 PM CDT Florian Hagen APRN.N.P., D .N.P. LAB BLOOD ADD-ON Performing Organization Address City/[facility]/ZIP Co de Phone Number [facility] [address] [place] [address], [place] OWAT [facility] in [place] [address] [place] [address] documented in this encounter Visit Diagnoses Diagnosis Body Mass Index 31.0 To 31.9 Adult documented in this encounter Additional Health Concerns Assessment Noted Time PHQ-9 Depression Total Score: 4 07/17/19 21 10:33 AM CILNICAL SCIENTIST documented as of this encounter Care Teams Director Of National Sales Relationship Specialty Start Date End Date Yuniel-Adriana Velázquez APRN, C.N.P., D.N.P. [address] [place] [phone] PCP - General Family Medicine 02/08/24 documented as of this encounter
--- OUTSIDE RECORDS SUMMARY | 2024-04-19 13:27 | XMS_ITS | Encounter Summary ---
Author Organization [facility] Address [address] [place] [address] Care Team Providers Care Clinical Audiologist Name Role Phone Deep Turk APRN, C.N.P., D.N.P. P [place] Care Provider Reason for Referral * Outpatient (Routine) - Closed Specialty Diagnoses / Procedures Referred By Contac t Referred To Contact Family Medicine Diagnoses Body Mass Index 31.0 To 31.9 Adult Deep Turk APRN, C.N.P., D.N.P. [address] [place] [address] [facility] Referral ID Status Reason Start Date Expiration Date Visits Re quested Visits Authorized [id number] Closed 02/09/2024 08/10/2025 1 1 * Outpatient (Routine) - Closed Specialty Diagnoses / Procedures Referred By Contac t Referred To Contact Diagnoses Body Mass Index 31.0 To 31.9 Adult Procedures ECG 12 Lead Deep Turk APRN, C.N.P., D.N.P. [address] [place] [address] [facility] Region Referral ID Status Reason Start Date Expiration Date Visits Re quested Visits Authorized [id number] Closed 02/09/2024 02/08/2025 1 1 * Outpatient (Routine) - Closed Specialty Diagnoses / Procedures Referred By Contac t Referred To Contact Nutrition Diagnoses Body Mass Index 31.0 To 31.9 Adult Deep Turk APRN, C.N.P., D.N.P. [address] [phone] [facility] Region Referral ID Status Reason Start Date Expiration Date Visits Re quested Visits Authorized [id number] Closed 02/09/2024 08/10/2025 1 1 Reason for Visit * Reason Comments Other Wt. Loss options * Appointment Request (Routine) - Closed Specialty Diagnoses / Procedures Referred By Contac t Referred To Contact Family Medicine Referral ID Status Reason Start Date Expiration Date Visits Re quested Visits Authorized [id number] Closed 02/08/2024 02/07/2025 1 1 Encounter Details Date Type Department Care Team (Late st Contact Info) Description 02/09/2024 3:00 PM CDT Office Visit Department of Family Medicine, [facility], in [place] [address] [place] [phone] Deep Turk APRN, C.N.PZaheer, D.N.P. [address] [phone] Body Mass Index 31.0 To 31.9 Adult (Primary Dx); Concern Weight Adult Asymptomatic Social History Tobacco Use Types Packs/Day Years Used Date Smoking Tobacco: Former Cigarettes 1 21 0 07/10/1979 - 07/10/2000 Smokeless Tobacco: Never Alcohol Use Standard Drinks/Week Comments Yes 0 (1 standard drink = 0.6 oz pur e alcohol) 1 drink every 3 months [facility] Utilities Answer Date Recorded In the past 12 months has th e electric, gas, oil, or water company [...] week 07/13/2020 How often do you attend yarsanism or lutheran serv ices? Never 07/13/2020 Do you belong to any clubs o r organizations such as yarsanism groups, unions, fraternal or athletic groups, or [...] Answer Date Recorded PHQ-2 Score 0 12/15/2023 [facility] [place] of Occupat ional Health - Occupational Stress [...] your living situation today? I have a [facility] place to live 02/09/2024 Education Answer [...] Sign Reading Time Taken Comments Blood Pressure 114/81 02/09/2024 2:45 PM CDT Pulse - - Temperature 36.2 ??C (97.1 ??F) 02/09/2024 2:45 PM CD T Respiratory Rate 16 02/09/2024 2:45 PM CDT Oxygen Saturation - - Inhaled Oxygen Concentration - - Weight 80.7 kg (178 lb 0.3 oz) 02/09/2024 2:45 P M CDT Height - - Body Mass Index 31.54 11/17/2023 10:08 AM CDT documented in this encounter Progress Notes * Deep Turk, KURT, C.N.P., D.N.P. - 02/09/2024 3:00 PM CDT SUBJECTIVE CHIEF COMPLAINT / REASON FOR VISIT Mary Carrillo is a 63 y.o. female who presents for evaluation of Other (Wt. Loss options ). HISTORY OF PRESENT ILLNESS Mary Carrillo is a 63-year-old female PMH low back pain, anxiety, panic disorder, presents to discuss weight loss options. Patient reports she was previously on phentermine and lost about 30 lb and then discontinued use. She reports she has been exercising daily, walks a mi 3 times a day while walking her dog, count steps, and trying to eat healthy and have been able to lose any weight. Reports she has been feeling more fatigued, issues with the back pain and attributes those symptoms to weight gain. OBJECTIVE Vitals: 02/09/24 1445 BP: 114/81 BP Location: Left arm Patient Position: Sitting Cuff Size: Regular Resp: 16 Temp: 36.2 ??C TempSrc: Temporal Weight: 80.7 kg Body mass index is 31.54 kg/m??. PHYSICAL EXAMINATION Constitutional Appearance: Normal appearance. HENT Head: Normocephalic and atraumatic. Eyes Pupils: Pupils are equal, round, and reactive to light. Cardiovascular Rate and Rhythm: Normal rate and regular rhythm. Pulmonary Effort: Pulmonary effort is normal. Breath sounds: Normal breath sounds. Musculoskeletal General: Normal range of motion. Cervical back: Normal range of motion. Skin General: Skin is warm and dry. Capillary Refill: Capillary refill takes less than 2 seconds. Neurological General: No focal deficit present. Mental Status: She is alert and oriented to person, place, and time. Psychiatric Mood and Affect: Mood normal. Behavior: Behavior normal. ASSESSMENT / PLAN #1 Body mass index 31.0 to 31.9 adult #2 Concern weight adult asymptomatic Clinical decision-makin-year-old female presents today to discuss reinstating phentermine for weight loss. Weight today is 80.7 kg, BMI 31.54 kg per m2. Patient reported while on phentermine previously lost 30 lb and discontinued use in 2019. She reports she would like to see a 30 lb weight loss and diet and exercise has not been effective thus far. -we will check TSH, CBC, BMP, A1c -she was referred to dietitian. -Patient encouraged in keep a nutritional log to monitor total calories, carbohydrates, fat, and proteins throughout the day. We reviewed options for weight loss including healthy diet and regular activity, medications for weight loss. I do think that the phentermine will work well for her as it did so in the past, along with the making changes with diet and activity level. Discussed staying under 50 g of carbohydrates a day. We also spent time discussing possible adverse effects and benefits of phentermine, and will get an ECG today. She will track her foods and follow a low-carbohydrate diet. She does understand shehas to return to the clinic every 30 days for further refills. Goal weight would be around 160 lb as she was this weight previously and felt well at that weight. We discussed using this in the morning in order to prevent sleep issues. She will contact the clinic with any concerns or side effects. All questions answered and patient voiced understanding and agreed with this plan. Deep Turk APRN, C.N.P., D.N.P. documented in this encounter Miscellaneous Notes * Addendum Note - Deep Turk APRN, C.N.P., D.N.P. - 02/09/2024 3:00 PM CDTAddended by: DEEP TURK on: 02/13/2024 11:15 PM Modules accepted: Orders documented in this encounter Plan of Treatment Upcoming Encounters Date Type Department Care Team (Late st Contact Info) Description 04/26/2024 9:50 AM CDT Appointment Department of Laboratory Medicine in [address] [phone] Deep Turk APRN, C.N.P., D.N.P. [address] [phone] 06/21/2024 10:45 AM RECORDING STUDIO INTERNSHIP Office Visit Department of Family Medicine, [facility], in [address] [phone] Deep Turk APRN, C.N.P., D.N.P. [address] [phone] 09/20/2024 9:30 AM CDT Office Visit Department of Family Medicine, [facility], in [address] [phone] Deep Turk APRN, C.N.P., D.N.P. [address] [address] Scheduled Referrals Name Type Priority Associated Diagnoses Orde r Schedule Nutrition - General medical nutrition therapy consult (clinic) Outpatient Referral Routine Body Mass Index 31.0 To 31.9 Adult Expected: 02/09/2024, Expires: 05/11/2025 Family Medicine office visit (clinic) Outpatient Referral Routine Body Mass Index 31.0 To 31.9 Adult Expected: 03/11/2024, Expires: 05/11/2025 documented as of this encounter Results * ECG 12 Lead (02/09/2024 3:41 PM CDT) Ventricular Rate ECG/Min 65 BPM MUSE [place] Interval 138 ms MUSE QRSD Interval 84 ms MUSE QT Interval 442 ms MUSE QTC Interval 459 ms MUSE P [place] 26 degrees MUSE R [place] 2 degrees MUSE T Wave [place] 28 degrees MUSE 02/09/2024 3:41 PM CDT [...] change was found Reviewed by MONIK Boyer Deep Turk APRN, C.N.P., D .N.P. ECG ORDERABLES MUSE NA * Hemoglobin A1c (02/09/2024 3:40 PM CDT) Hemoglobin A1c, B 5.0 4.2 - 5.6 % 02/09/2024 6:17 PM CDT OWAT Blood (Blood, Venous) 02/09/2024 3:40 PM CDT 02/09/2024 5:42 PM CDT Deep Turk APRN, C.N.P., D .N.P. LAB BLOOD ADD-ON [facility] [address] [place] [address], [place] OWAT [facility] [place] [address] [place] [address] * Thyroid Function [place] (02/09/2024 3:40 PM CDT) TSH, Sensitive 1.9 0.3 - 4.2 mIU/L 02/09/2024 6:20 PM CDT OWAT Blood (Blood, Venous) 02/09/2024 3:40 PM CDT 02/09/2024 5:42 PM CDT Florian Hagen APRN.N.P., D .N.P. LAB BLOOD ADD-ON [facility] [address] [place] [address], [facility] OWAT [facility] [place] [address] [place] [address] * Basic Metabolic Panel (02/09/2024 3:37 PM [...] 3:37 PM CDT 02/09/2024 5:55 PM CDT Deep Turk APRN, Florian.N.P., D .N.P. LAB BLOOD ADD-ON [facility] [address] [place] [address], [facility] OWAT [facility] [place] [address] [place] [address] * (ABNORMAL) CBC with Differential, Blood (02/09/2024 [...] 3:37 PM CDT 02/09/2024 5:55 PM CDT Deep Turk APRN, C.N.P., D .N.P. LAB BLOOD ADD-ON [facility] [address] [address], [facility] OWAT [facility] [place] [address], [place] [address] * Drug Screen Urine (02/09/2024 3:37 PM CDT) [facility] Amphetamines, U Negative Negative 02/09/2024 7:12 PM CDT MKTO Comment: ----ADDITIONAL INFORMATION---- Case Hardener's Cutoff: 500 ng/mL Barbiturates, U Negative Negative 02/09/2024 7:12 PM CDT MKTO Comment: ----ADDITIONAL INFORMATION---- Case Hardener's Cutoff: 200 ng/mL Benzodiazepine s, U Negative Negative 02/09/2024 7:12 PM CDT MKTO Comment: ----ADDITIONAL INFORMATION---- Case Hardener's Cutoff: 150 ng/mL Buprenorphine, U Negative Negative 02/09/2024 7:12 PM CDT MKTO Comment: ----ADDITIONAL INFORMATION---- Case Hardener's Cutoff: 10 ng/mL Cocaine, U Negative Negative 02/09/2024 7:12 PM CDT MKTO Comment: ----ADDITIONAL INFORMATION---- Case Hardener's Cutoff: 150 ng/mL Methadone, U Negative Negative 02/09/2024 7:12 PM CDT MKTO Comment: ----ADDITIONAL INFORMATION---- Case Hardener's Cutoff: 200 ng/mL Methamphetamin es, U Negative Negative 02/09/2024 7:12 PM CDT MKTO Comment: ----ADDITIONAL INFORMATION---- Case Hardener's Cutoff: 500 ng/mL Opiates, U Negative Negative 02/09/2024 7:12 PM CDT MKTO Comment: ----ADDITIONAL INFORMATION---- Case Hardener's Cutoff: 100 ng/mL Oxycodone, U Negative Negative 02/09/2024 7:12 PM CDT MKTO Comment: ----ADDITIONAL INFORMATION---- Case Hardener's Cutoff: 100 ng/mL Phencyclidine, U Negative Negative 02/09/2024 7:12 PM CDT MKTO Comment: ----ADDITIONAL INFORMATION---- Case Hardener's Cutoff: 25 ng/mL Tetrahydrocann abinol, U Negative Negative 02/09/2024 7:12 PM CDT MKTO Comment: ----ADDITIONAL INFORMATION---- Case Hardener's Cutoff: 50 ng/mL Tricyclic Antidepressant s, U Negative Negative 02/09/2024 7:12 PM CDT MKTO Comment: ----ADDITIONAL INFORMATION---- Case Hardener's Cutoff: 300 ng/mL THE ABOVE DRUG SCREEN PANEL IS FOR MEDICAL PURPOSES ONLY Urine (Urine, Midstream) 02/09/2024 3:37 PM CDT 02/09/2024 6:52 PM CDT Deep Turk APRN, C.N.P., D .N.P. LAB URINE ORDERABLES [facility] [address] [place] [address], [place] [address] documented in this encounter Visit Diagnoses Diagnosis Body Mass Index 31.0 To 31.9 Adult- Primary Concern Weight Adult Asymptomatic Body Mass Index 31.0 To 31.9 Adult documented in this encounter Additional Health Concerns Assessment Noted Time PHQ-9 Depression Total Score: 4 07/17/19 21 10:33 AM RECORDING STUDIO INTERNSHIP documented as of this encounter Care Teams Clinical Audiologist Relationship Specialty Start Date End Date Deep Turk APRN, C.N.P., D.N.P. [address] [place] [address] PCP - General Family Medicine 02/08/24 documented as of this encounter
--- OUTSIDE RECORDS SUMMARY | 2024-04-19 13:27 | XMS_ITS | Clinical Summary ---
Author Organization [facility] Address [place], [place] [address] Care Team Providers Care Therapeutic Program Worker Name Role Phone Elmira Vines MD Primary Care Provider [phone] Allergies No known active allergies Medications Medication Sig Dispensed Refills Start Date End Date Status citalopram (CELEXA) 40 mg tabletIndications:Dep ression with anxiety Take 1 tablet by mouth once daily. 30 tablet 11 03/31/2014 Active traZODone (DESYREL) 50 mg tabletIndications:Dep ression with anxiety TAKE 1 TABLET BY MOUTH NIGHTLY AT BEDTIME 30 tablet 0 04/14/2015 Active Active Problems Problem Noted Date Diagnosed Date Right LBP 01/21/2014 Rotator cuff tear 09/27/2012 Overview (09/27/2012): Surgery 06/20 Depression with anxiety 07/22/2011 Panic disorder without agoraphobia 12/29/2008 Anxiety disorder in conditions classified elsew ere 10/03/2006 Overview (10/03/2006): panic/anxiety Tension headache 10/03/2006 Seborrheic infantile dermatitis 10/03/2006 Overview (10/03/2006): eczema Immunizations Name Administration Dates Next Due Influenza, IIV4 03/31/2014 Td (Age >=7 Years) 09/13/1995 Td, Preservative Free (age >= 7 Years) 6 Tdap 03/31/2014 Family History Medical History Relation Name Comments Hyperlipidemia Father Riaz Hypertension Father Riaz Cancer-breast Maternal Aunt Alcohol/Drug Paternal Grandfather Cancer Paternal Grandfather Lung Cancer Paternal Grandmother Lung Asthma Sister 2 Relation Name Status Comments Brother 1 Max Alive Brother 2 Dania Alive Daughter Hortensia Alive Father Riaz Alive Maternal Aunt Maternal Grandfather Maternal Grandmother Zahira Alive Mother Rose Alive Paternal Grandfather Paternal Grandmother Sister 1 Dagmar Alive Sister 2 Son 1 Karlo Alive Son 2 Madhu Alive Son 3 Cisneros Alive Social History Tobacco Use Types Packs/Day Years Used Date Smoking Tobacco: Former Cigarettes Q uit: 02/04/2000 Alcohol Use Standard Drinks/Week Comments Not Asked 0 (1 standard drink = 0.6 oz pur e alcohol) Sex and Gender Information Value Date Recorded Sex Assigned at Not on file Gender Identity Not on file Sexual Orientation Not on file Obstetrics History Para Term AB IAB SAB Ectopic Multiple Livin g Live Births 4 4 Date Outcome GA Total Labor Labor/2nd/3rd Weight Sex Type Anes PTL Dominique A1 A5 Name Clin Last Filed Vital Signs Vital Sign Reading Time Taken Comments Blood Pressure 137/81 11/07/2023 4:30 PM CDT Pulse 82 11/07/2023 4:30 PM CDT Temperature 36.9 ??C (98.4 ??F) 11/07/2023 1:08 PM CD T Respiratory Rate 18 11/07/2023 1:08 PM CDT Oxygen Saturation 96% 11/07/2023 1:15 PM CDT Inhaled Oxygen Concentration - - Weight 75.8 kg (167 lb) 11/07/2023 1:08 PM CDT Height 157.5 cm (5' 2) 11/07/2023 1:08 PM CDT Body Mass Index 30.54 11/07/2023 1:08 PM CDT Plan of Treatment Health Maintenance Due Date Last Done Comments Depression screening for age 12+ 1974 HIV for age 15-65 1977 BMI (ht and wt on same day) for age 18+ 02/25/1980 Hepatitis C screening for ag e 18-79 02/25/1980 Lipids for age 45-75 2007 Zoster (shingles) series for age 50+ (1 of 2) 02/25/2012 Mammogram for age 45-75 07/29/2015 07/29/19 15, 04/24/2007 Fecal testing non-DNA (FIT,FOBT,iFOBT) for age 45-75 03/22/2016 03/22/2015 COVID-19 vaccine series (2023- season) 2024 12/31/2021, 11/27/2021 Influenza for age 50-64 03/10/2024 03/31/2014 Tetanus booster 06/14/2026 06/14/2016, 03/31/2014, 09/13/1995 Tdap Completed 03/31/2014 Pneumococcal series for age 6-64 Aged Out No longer eligible b ased on patient's age to complete this topic Procedures Procedure Name Priority Date/Time Associated Diagnosis Comments OCCULT BLOOD IFOBT STOOL Routine 03/22/2015 8:34 AM CDT Screening for colorectal cancer XR MAMMO BILAT SCREEN FFDM (IA) Routine 07/29/2014 1:39 PM ASSEMBLER TRACTOR Other screening mammogram from Last 3 Months or Most Recently Relevant to Health Maintenance Results * OCCULT BLOOD IFOBT STOOL (03/22/2015 8:34 AM CDT) STOOL BLOOD ,IFOBT Negative Negative, Invalid 03/27/2015 11:51 AM CDT [facility] Stool specimen (specimen) STOOL SPECIMEN / Unknown Non-Blood / Unknown 03/22/2015 8:34 AM CDT 03/27/2015 8:34 AM CDT Rea Millan MD LABORATORY [facility] [address] [place] [address], * XR MAMMO BILAT SCREEN FFDM (07/29/2014 1:39 PM ASSEMBLER TRACTOR) Anatomical Region Laterality Modality BREASTS, Breast Left, Breast Right Bilateral Mammography Impressions 08/01/2014 2:56 PM ASSEMBLER TRACTOR ??There is no radiographic evidence for malignancy. ??Recommend annual mammograms. A lay language report of this examination will be provided to the patient. MAMMOGRAM ASSESSMENT: ??ACR 1 Negative Narrative 08/01/2014 2:56 PM ASSEMBLER TRACTOR XR MAMMO BILAT SCREEN FFDM [G0202.0] CLINICAL HISTORY: ??This is an asymptomatic 54 y.o. patient. INDICATION FOR EXAM: Mammogram Screening. TECHNIQUE: CC & MLO views were obtained. ??This digital study was evaluated with the assistance of Computer-Aided Detection. ?? COMPARISON FILM: Yes 04/24/07 [facility] FINDINGS: ??Mammographically, the breast tissue has scattered fibroglandular densities. ??There are no dominant masses, suspicious micro calcifications or areas of architectural distortion. Procedure Note rAies Stephens MD - 08/01/2014 XR MAMMO BILAT SCREEN FFDM [G0202.0] CLINICAL HISTORY: This is an asymptomatic 54 y.o. patient. INDICATION FOR EXAM: Mammogram Screening. TECHNIQUE: CC & MLO views were obtained. This digital study was evaluatedwith the assistance of Computer-Aided Detection. COMPARISON FILM: Yes 04/24/07 [facility] FINDINGS: Mammographically, the breast tissue has scatteredfibroglandular densities. There are no dominant masses, suspicious microcalcifications or areas of architectural distortion. IMPRESSION: There is no radiographic evidence for malignancy. Recommendannual mammograms. A lay language report of this examination will be provided to the patient. MAMMOGRAM ASSESSMENT: ACR 1 Negative Rea Millan MD MAMMO from Last 3 Months or Most Recently Relevant to Health Maintenance Care Teams Therapeutic Program Worker Relationship Specialty Start Date End Date Elmira Vines MD [address] [place] [address] PCP - General Family Practice 11/07/23
--- OUTSIDE RECORDS SUMMARY | 2024-04-19 13:27 | XMS_ITS | Encounter Summary ---
Author Organization [facility] Address [address] [place] [address] Care Team Providers Care Miter Cutter Name Role Phone Adriana Marroquin APRN, C.N.P., D.N.P. P [facility] Care Provider Reason for Visit * Reason Comments Med Refill Encounter Details Date Type Department Care Team (Late st Contact Info) Description 02/07/2024 Refill Department of Family Medicine, [facility], in [address] [phone] Adriana Marroquin APRN, C.N.P., D.N.P. [address] [phone] Med Refill Social History Tobacco Use Types Packs/Day Years Used Date Smoking Tobacco: Former Cigarettes 1 21 0 07/10/1979 - 07/10/2000 Smokeless Tobacco: Never Alcohol Use Standard Drinks/Week Comments Not Currently 0 (1 standard drink = 0.6 oz pur e alcohol) 1 drink every 3 months [facility] Utilities Answer Date Recorded In the past [...] week 07/13/2020 How often do you attend samaritan or christian serv ices? Never 07/13/2020 Do you belong to any clubs o r organizations such as samaritan groups, unions, fraternal or athletic groups, or [...] Answer Date Recorded PHQ-2 Score 0 12/15/2023 [facility] [place] of Occupat ional Health - Occupational Stress [...] your living situation today? I have a [facility] place to live 02/09/2024 Education Answer [...] CDT Appointment Department of Laboratory Medicine in [address] [place] [phone] YunielAdriana Velázquez APRN, C.N.P., D.N.P. [address] [facility] [place] [address] 06/21/2024 10:45 AM INTERIOR DECORATOR PAPERHANGING Office Visit Department of [facility], [facility], [address] [phone] Adriana Marroquin APRN, C.N.P., D.N.P. [address] [phone] 09/20/2024 9:30 AM CDT Office Visit Department of [facility], [facility], [address] [phone] Adriana Marroquin APRN C.N.P., D.N.P. [address] [phone] documented as of this encounter Visit Diagnoses Diagnosis Dermatitis documented in this encounter Additional Health Concerns Assessment Noted Time PHQ-9 Depression Total Score: 4 07/17/19 21 10:33 AM INTERIOR DECORATOR PAPERHANGING documented as of this encounter Care Teams Miter Cutter Relationship Specialty Start Date End Date Adriana Marroquin APRN, C.N.P., D.N.P. [address] [phone] PCP - General Family Medicine 02/08/24 documented as of this encounter
--- OUTSIDE RECORDS SUMMARY | 2024-04-19 13:27 | XMS_ITS | Encounter Summary ---
Author Organization [facility] Address [address] [place] [address] Care Team Providers Care Inspector Packer Glass Container Name Role Phone Adriana Marroquin APRN, C.N.P., D.N.P. P [facility] Care Provider Reason for Visit * Reason Comments Med Refill Encounter Details Date Type Department Care Team (Late st Contact Info) Description 02/08/2024 Refill Department of Family Medicine, [facility], in [address] [phone] Adriana Marroquin APRN, C.N.P., D.N.P. [address] [phone] Med Refill Social History Tobacco Use Types Packs/Day Years Used Date Smoking Tobacco: Former Cigarettes 1 21 0 07/10/1979 - 07/10/2000 Smokeless Tobacco: Never Alcohol Use Standard Drinks/Week Comments Not Currently 0 (1 standard drink = 0.6 oz pur e alcohol) 1 drink every 3 months [facility] Utilities Answer Date Recorded In the [...] week 07/13/2020 How often do you attend pentecostal or episcopal serv ices? Never 07/13/2020 Do you belong to any clubs o r organizations such as pentecostal groups, unions, fraternal or athletic groups, or [...] Answer Date Recorded PHQ-2 Score 0 12/15/2023 [facility] of Occupat ional Health - Occupational Stress [...] your living situation today? I have a [facility] place to live 02/09/2024 Education Answer Date [...] encounter Miscellaneous Notes * Telephone Encounter - Yanira Lenz - 02/09/2024 11:01 AM CDT Rx sent 02/09/24 #30 caps with 1 refills documented in this encounter Plan of Treatment Upcoming Encounters Date Type Department Care Team (Late st Contact Info) Description 04/26/2024 9:50 AM CDT Appointment Department of Laboratory Medicine in [address] [place] [address] Adriana Marroquin APRN C.N.PZaheer, D.N.P. [address] [phone] 06/21/2024 10:45 AM GOLF COURSE KEEPER Office Visit Department of Family Medicine, [facility], in [address] [phone] Adriana Marroquin APRN, C.N.P., D.N.P. [address] [phone] 09/20/2024 9:30 AM CDT Office Visit Department of Family Medicine, [facility], in [address] [phone] Adriana Marroquin APRN C.N.P., D.N.P. [address] [phone] documented as of this encounter Visit Diagnoses Diagnosis Dermatitis documented in this encounter Additional Health Concerns Assessment Noted Time PHQ-9 Depression Total Score: 4 07/17/19 21 10:33 AM GOLF COURSE KEEPER documented as of this encounter Care Teams Inspector Packer Glass Container Relationship Specialty Start Date End Date Adriana Marroquin APRN C.N.P., D.N.P. [address] [phone] PCP - General Family Medicine 02/08/24 documented as of this encounter
--- OUTSIDE RECORDS SUMMARY | 2024-04-19 13:27 | XMS_ITS | Encounter Summary ---
Author Organization [facility] Address [address] [place] [address] Care Team Providers Care Online Retailer Name Role Phone Unassigned, Pcp Primary Care Provider Unavailabl e Reason for Visit * Reason Onset Date Comments Med Question 12/15/2023 Encounter Details Date Type Department Care Team (Late st Contact Info) Description 12/15/2023 Clinical Communication Department of Family Medicine, [facility], in [place], [place] [address] [place] [phone] Adriana Marroquin APRN, C.N.P., D.N.P. [address], [place] [address] Med Question Social History Tobacco Use Types Packs/Day Years Used Date Smoking Tobacco: Former Cigarettes 1 21 0 07/10/1979 - 07/10/2000 Smokeless Tobacco: Never Alcohol Use Standard Drinks/Week Comments Not Currently 0 (1 standard drink = 0.6 oz pur e alcohol) 1 drink every 3 months Humiliation, Afraid, Rape, and Kick questionnair e [...] week 07/13/2020 How often do you attend voodoo or confucianist serv ices? Never 07/13/2020 Do you belong to any clubs o r organizations such as voodoo groups, unions, fraternal or athletic groups, or [...] Answer Date Recorded PHQ-2 Score 0 12/15/2023 [facility] of Occupat ional Health - Occupational Stress [...] exercise (like a brisk walk)? 0 days 07/13/2020 On average, how many minutes do you engage in exercise at this level? 0 min 07/13/2020 Hunger Vital Sign Answer Date Recorded Within the past 12 months, y ou worried that your food would run out before you got the money to buy more. Never true 07/13/19 21 Within the past 12 months, t he food you bought just didn't last and you didn't have money to get more. Never true 07/13/2020 PRAPARE - Transportation Answer Date Re corded In the past 12 months, has l ack of transportation kept you from medical appointments or from getting medications? No 10/2020 In the past 12 months, has l ack of transportation kept you from meetings, work, or from getting things needed for daily living? No 07/13/2020 Depression Answer Date Recor ded PHQ-9 Total Score (max 27) 4 07/17 Nutrition Answer Date Recorded Nutrition: EVOO Fat Source No 07/13 On average, how many serving s of fruits and vegetables do you eat per day (serving size is equal to 1 cup or approximately the size of a tennis ball)? 0-1 07/13/2020 Dental Answer Date Recorded Dental: Regular Dentist Unknown 07/18/19 Education Answer Date Recorded What is the [...] Appointment Department of Laboratory Medicine in [address] [phone] Adriana Marroquin APRN, C.N.P., D.N.P. [address] [phone] 06/21/2024 10:45 AM STRUCTURES ENGINEER Office Visit Department of Family Medicine, [facility], in [address] [phone] Adriana Marroquin APRN, C.N.P., D.N.P. [address] [place] [address], [place] [phone] 09/20/2024 9:30 AM CDT Office Visit Department of Family Medicine, [facility], in [place], [place] [address] [facility] [phone] Adriana Marroquin APRN, C.N.P., D.N.P. [address] [place] [phone] documented as of this encounter Visit Diagnoses Not on filedocumented in this encounter Additional Health Concerns Assessment Noted Time PHQ-9 Depression Total Score: 4 07/17/19 21 10:33 AM STRUCTURES ENGINEER documented as of this encounter Care Teams Online Retailer Relationship Specialty Start Date End Date Unassigned, Pcp PCP - General Family Medicine 10/15/23 02/07/24 documented as of this encounter
--- OUTSIDE RECORDS SUMMARY | 2024-04-19 13:27 | XMS_ITS | Encounter Summary ---
Author Organization [facility] Address [address] [place] [address] Care Team Providers Care Interior Decorator Name Role Phone Adriana Marroquin APRN, C.N.P., D.N.P. P [facility] Care Provider Encounter Details Date Type Department Care Team (Late st Contact Info) Description 02/09/2024 3:34 PM CDT - 02/09/2024 5:49 PM CDT Hospital Encounter Department of Laboratory Medicine in [address] [phone] Adriana Marroquin APRN, C.N.P., D.N.P. [address] [phone] Body Mass Index 31.0 To 31.9 Adult Discharge Disposition: Home or Self Care Social History Tobacco Use Types Packs/Day Years Used Date Smoking Tobacco: Former Cigarettes 1 21 0 07/10/1979 - 07/10/2000 Smokeless Tobacco: Never Alcohol Use Standard Drinks/Week Comments Yes 0 (1 standard drink = 0.6 oz pur e alcohol) 1 drink every 3 months [facility] Utilities Answer Date Recorded In the past 12 months has e electric, gas, oil, or water [employer] threatened to shut off services in your [...] How often do you attend yarsanism or mu-ism serv ices? Never 07/13/2020 Do you belong [...] Answer Date Recorded PHQ-2 Score 0 12/15/2023 [facility] [place] of Occupat ional Health - Occupational Stress [...] your living situation today? I have a [facility] place to live 02/09/2024 Education [...] CDT Appointment Department of Laboratory Medicine in [address] [phone] [facility], C.N.P., D.N.P. [address] [phone] 06/21/2024 10:45 AM SENIOR INDUSTRIAL ENGINEER Office Visit Department of Family [facility], [facility], in [address] [phone] [facility] APRN, C.N.P., D.N.P. [address] [phone] 09/20/2024 9:30 AM CDT Office Visit Department of Family [facility], [facility], in [address] [phone] YunielAdriana Velázquez APRN, C.N.P., D.N.P. [address] [phone] documented as of this encounter Procedures Procedure Name Priority Date/Time Associated Diagnosis Comments DRUG SCREEN URINE Routine 02/09/2024 3:3 7 PM CDT Body Mass Index 31.0 To 31.9 Adult documented in this encounter Results * Drug Screen Urine (02/09/2024 3:37 PM CDT) [facility] Amphetamines, U Negative Negative 02/09/2024 7:12 PM CDT [facility] Comment: ----ADDITIONAL INFORMATION---- Timber Spotter's Cutoff: 500 ng/mL Barbiturates, U Negative Negative 02/09/2024 7:12 PM CDT [facility] Comment: ----ADDITIONAL INFORMATION---- Timber Spotter's Cutoff: 200 ng/mL Benzodiazepine s, U Negative Negative 02/09/2024 7:12 PM CDT [facility] Comment: ----ADDITIONAL INFORMATION---- Timber Spotter's Cutoff: 150 ng/mL Buprenorphine, U Negative Negative 02/09/2024 7:12 PM CDT [facility] Comment: ----ADDITIONAL INFORMATION---- Timber Spotter's Cutoff: 10 ng/mL Cocaine, U Negative Negative 02/09/2024 7:12 PM CDT [facility] Comment: ----ADDITIONAL INFORMATION---- Timber Spotter's Cutoff: 150 ng/mL Methadone, U Negative Negative 02/09/2024 7:12 PM CDT [facility] Comment: ----ADDITIONAL INFORMATION---- Timber Spotter's Cutoff: 200 ng/mL Methamphetamin es, U Negative Negative 02/09/2024 7:12 PM CDT [facility] Comment: ----ADDITIONAL INFORMATION---- Timber Spotter's Cutoff: 500 ng/mL Opiates, U Negative Negative 02/09/2024 7:12 PM CDT [facility] Comment: ----ADDITIONAL INFORMATION---- Timber Spotter's Cutoff: 100 ng/mL Oxycodone, U Negative Negative 02/09/2024 7:12 PM CDT [facility] Comment: ----ADDITIONAL INFORMATION---- Timber Spotter's Cutoff: 100 ng/mL Phencyclidine, U Negative Negative 02/09/2024 7:12 PM CDT [facility] Comment: ----ADDITIONAL INFORMATION---- Timber Spotter's Cutoff: 25 ng/mL Tetrahydrocann abinol, U Negative Negative 02/09/2024 7:12 PM CDT [facility] Comment: ----ADDITIONAL INFORMATION---- Timber Spotter's Cutoff: 50 ng/mL Tricyclic Antidepressant s, U Negative Negative 02/09/2024 7:12 PM CDT [facility] Comment: ----ADDITIONAL INFORMATION---- Timber Spotter's Cutoff: 300 ng/mL THE ABOVE DRUG SCREEN PANEL IS FOR MEDICAL PURPOSES ONLY Urine (Urine, Midstream) 02/09/2024 3:37 PM CDT 02/09/2024 6:52 PM CDT Adriana Marroquin APRN, Florian.N.P., D .N.P. LAB URINE ORDERABLES [facility] [address] [place] [address], [facility] [place] [address] documented in this encounter Visit Diagnoses Diagnosis Body Mass Index 31.0 To 31.9 Adult documented in this encounter Additional Health Concerns Assessment Noted Time PHQ-9 Depression Total Score: 4 07/17/19 21 10:33 AM SENIOR INDUSTRIAL ENGINEER documented as of this encounter Care Teams Interior Decorator Relationship Specialty Start Date End Date Adriana Marroquin APRN, C.N.P., D.N.P. [address] [place] [phone] PCP - General Family Medicine 02/08/24 documented as of this encounter
--- NOTE | 2024-04-19 13:40 | CRLHL7_ITS ---
For Patients: As a result of the Cures Act, medical imaging exams and procedure reports are released immediately into your electronic medical record. You may view this report before your referring provider. If you have questions, please contact your health care provider. BILATERAL SCREENING MAMMOGRAM WITH COMPUTER-AIDED DETECTION AND TOMOSYNTHESIS TECHNIQUE: CC and MLO views were obtained. These mammographic images have been obtained using full-field digital technique. These mammographic images were interpreted with the benefit of computer-aided detection. Breast Tomosynthesis was used in this interpretation. COMPARISON FILM: 02/17/23, 01/24/22, 08/19/16. FINDINGS: There are scattered areas of fibroglandular density IMPRESSION: There is no radiographic evidence for malignancy. ASSESSMENT: BI-RADS Category 2: Benign RECOMMENDATION: Routine screening mammogram in 1 year. A lay language report of this examination will be provided to the patient. Artemio Hough M.D. Diagnostic Radiologist [email or web address] Transcribed: 1:45 p.mZaheer patel/Dictated by: Artemio Hough MD @ 04/29/2024 9:30:00 AM (Electronically Signed)
== END 2024-04-19 13:24 | disposition home or self-care (01) ==
LOC: MAMMO 13:24
PROVIDERS: PCP Internal Medicine; Visit Provider Internal Medicine
DX: Z12.31 Encounter for screening mammogram for malignant neoplasm of breast (principal)
CPT/HCPCS: 77063; 77067